=== PATIENT | female | born 1960 | race Caucasian/White ===

== ENCOUNTER → 2020-06-24 13:04 | Outpatient (BNVA) | payer MEDICAID, SELFPAY | PROVIDERS: PCP Student in an Organized Health Care Education/Training Program; Visit Provider Urology | DX: N39.41 Urge incontinence (principal); R31.29 Other microscopic hematuria | CPT/HCPCS: 51798; 88112; 99204 ==

== ENCOUNTER 2020-07-23 11:18 | Outpatient (REF) | payer MEDICAID, SELFPAY ==
--- NOTE | 2020-07-23 | US_ITS ---
EXAMINATION: US PELVIS LIMITED (BLADDER) CLINICAL INFORMATION: Urinary incontinence. COMPARISON: None TECHNIQUE: Real-time imaging of the bladder. FINDINGS: BLADDER: Well distended and normal. Bilateral ureteral jets are demonstrated. Prevoid bladder volume is 530 mL. Postvoid bladder volume is 111 mL. US/US bladder IMPRESSION: Normal bilateral ureteral jets seen. There is moderate postvoid bladder volume measuring 111 mL.
== END 2020-07-23 11:19 | disposition home or self-care (01) ==
LOC: HO.HMGCX 11:18
PROVIDERS: PCP Student in an Organized Health Care Education/Training Program; Visit Provider Student in an Organized Health Care Education/Training Program
DX: R32 Unspecified urinary incontinence (principal)
CPT/HCPCS: 76857

== ENCOUNTER → 2021-04-29 14:51 | Outpatient (BNVA) | payer SELFPAY | PROVIDERS: PCP Student in an Organized Health Care Education/Training Program | DX: R76.11 Nonspecific reaction to tuberculin skin test without active tuberculosis (principal) ==

== ENCOUNTER → 2021-05-08 14:43 | Outpatient (BNVA) | payer SELFPAY | PROVIDERS: PCP Student in an Organized Health Care Education/Training Program; Visit Provider Physician Assistant Medical | DX: Z02.1 Encounter for pre-employment examination (principal) ==

== ENCOUNTER 2024-01-17 09:22 | Outpatient (REF) | payer MEDICAID, SELFPAY ==
[2024-01-17 14:21] LABS: MANUAL DIFF FLAG NO
[2024-01-17 14:24] LABS: Basophils Percent Auto 0.8 % (0-2); Eosinophils Absolute Auto 0.2 X10*3/uL (0.0-0.4); Eosinophils Percent Auto 3.6 % (0-4); Hemoglobin 12.4 g/dl (12.0-16.0); Imm Gran Abs Auto 0.03 X10*3/uL (0.00-0.03); Imm Gran Pct Auto 0.6 % (0.0-0.4); Lymphocytes Absolute Auto 1.3 X10*3/uL (1.2-4.9); Lymphocytes Percent Auto 26.9 % (20-40); Mean Corpuscular HGB Conc 31.8 g/dl (31.0-35.0); Mean Corpuscular Hemoglobin 28.9 pg (27.0-33.0); Mean Corpuscular Volume 90.9 fL (80.0-98.0); Mean Platelet Volume 9.8 fL (9.4-12.3); Monocytes Absolute Auto 0.3 X10*3/uL (0.1-1.2); Monocytes Percent Auto 6.8 % (2-11); Neutrophils Absolute Auto 3.1 x10*3/uL (2.0-8.3); Neutrophils Percent Auto 61.3 % (45-73); Platelet Count 270 X10*3/uL (160-400); Red Blood Count 4.29 X10*6/uL (4.20-5.50); Red Cell Distribution Width 13.5 % (11.0-16.0)
[2024-01-17 14:55] LABS: Erythrocyte Sedimentation Rate 20 MM/HR (0-20)
[2024-01-17 14:57] LABS: Anion Gap 14 (12-20); Blood Urea Nitrogen 16 mg/dL (9-16); Calcium 9.5 mg/dL (8.4-10.2); Carbon Dioxide 25 mmol/L (22-29); Chloride 107 mmol/L (96-108); Estimated Glomerular Filt Rate > 60; Glucose Random 81 mg/dL (60-115); Potassium 4.1 mmol/L (3.3-5.1); Sodium 142 mmol/L (135-145)
[2024-01-17 16:17] LABS: Rheumatoid Factor < 13.0 IU/mL (<15.0)
== END 2024-01-17 09:23 | disposition home or self-care (01) ==
LOC: HO.CHCLDS 09:22
PROVIDERS: Visit Provider Pediatrics
DX: M25.511 Pain in right shoulder (principal); G89.29 Other chronic pain
CPT/HCPCS: 36415; 80048; 85025; 85652; 86431

== ENCOUNTER 2024-04-26 20:47 | Emergency (ER) | payer MEDICAID, SELFPAY ==
[2024-04-26 21:20] VITALS: BP 150/75; PULSE 82; RESP 20; TEMP 37; O2SAT 97; BMI 31.9
--- NOTE | 2024-04-26 22:40 | ED_ITS ---
HPI - General Adult General Chief complaint: Neck Pain/Injury Stated complaint: neck, jaw, back of head pain x3 days Time Seen by Provider: 04/26/24 22:37 Source: patient Mode of arrival: ambulatory Limitations: no limitations History of Present Illness ED Provider: estefany TAVAREZ narrative: Patient is a 63-year-old female with history of fibromyalgia presenting to the emergency department with complaint of gradually worsening left-sided neck pain for the past 3 days. She reports the pain is worse with movement and palpation. States it is radiating up to her occipital area and down to her shoulder. Reports pain increases when she opens her jaw. She denies any changes in vision. Denies any weakness, numbness, or tingling to extremities. Denies fever. Denies weight loss. Denies dizziness or lightheadedness. Denies increased pain with neck flexion. States that yesterday she was driving and her gradaughter attempted to jump out of the car. She reached over to grab her and this increased her pain. Denies sore throat or recent URI symptoms. MD complaint: neck pain Onset (ago): day(s) Location: neck Severity: severe Quality: aching Pain Consistency: constant Relieving factors: none Exacerbating factors: movement and other (palpation) Treatments prior to arrival: none Related Data Home Medications ?Medication ?Instructions ?Recorded ?Confirmed aspirin 81 mg tablet,delayed 81 mg PO DAILY 06/24/20 release zhnffvs-poswpkmcvsewo-dthkopmn 250 1 tab PO Q4-6H PRN 06/24/20 mg-250 mg-65 mg tablet (Excedrin Migraine) xcgbsiiaja-pcqnjhnvnabra-rrahqsyx 1 cap PO Q4-6H PRN 06/24/20 50 mg-300 mg-40 mg capsule (Fioricet) cetirizine 10 mg tablet (Zyrtec) 10 mg PO DAILY 06/24/20 cholecalciferol (vitamin D3) 25 25 mcg PO DAILY 06/24/20 mcg (1,000 unit) capsule esomeprazole magnesium 20 mg 20 mg PO DAILY 06/24/20 capsule,delayed release (Nexium) hydrochlorothiazide 25 mg tablet 25 mg PO DAILY 06/24/20 ibuprofen 600 mg tablet 600 mg PO Q6H PRN 06/24/20 miconazole nitrate 2 % topical 1 applic topical DAILY 06/24/20 cream pantoprazole 20 mg tablet,delayed 20 mg PO DAILY 06/24/20 release sucralfate 1 gram tablet (Carafate) 1 g PO BID 06/24/20 tolterodine 1 mg tablet (Detrol) 1 mg PO DAILY 06/24/20 Previous Rx's ?Medication ?Instructions ?Recorded tolterodine 4 mg capsule,extended 4 mg PO DAILY #30 caps 01/19/21 release 24 hr cyclobenzaprine 5 mg tablet 5 mg PO TID PRN muscle spasm #10 04/27/24 tabs lidocaine 5 % topical patch 1 patch topical DAILY #15 ea 04/27/24 Allergies Allergy/AdvReac Type Severity Reaction Status Date / Time tetracycline Allergy Angioedema Verified 04/26/24 21:25 morphine AdvReac Vomiting Verified 04/26/24 21:25 Review of Systems Review of Systems: As per HPI. Yes all other systems are reviewed and are negative Constitutional: Constitutional: Reports as per HPI [facility] Social History Social History Advance Directives: No Advance Directives Information Provided: No Physical Exam ED Vital Signs: Vital Signs - 24 hr 04/26/24 21:20 Temperature 98.6 F Pulse Rate 82 Respiratory Rate 20 Blood Pressure 150/75 H Pulse Oximetry 97 Oxygen Delivery Method Room Air BMI result Body Mass Index 31.9 Vital signs have been reviewed and appear to be correct. Blood pressure elevated. Heart rate normal. Respiratory rate normal. Temperature normal. Oxygen saturation normal. Const General: cooperative, healthy appearing and no acute distress Orientation/consciousness: oriented to person, oriented to place, oriented to time and patient oriented x3 Limitations: no limitations [facility] Head: Yes normocephalic and Yes atraumatic Ears: external ears normal General nose exam: Normal external nose present Face and sinus: Yes face symmetric Mouth: oropharynx normal, moist mucous membranes, no audible dysphonia, no drooling, no trismus and No restricted motion Throat: Yes posterior oropharynx normal, Yes uvula midline, No peritonsillar mass and No uvular edema Eyes Other: no ptosis , no anisocoria General: appearance normal, both eyes and all related structures Visual Bai: normal visual bai by confrontation Alignment and Position: alignment normal and position normal Periorbital: periorbital findings normal Eyelids: Yes eyelids normal Pupils: Equal, round and reactive pupils present EOM: EOMs intact bilaterally Neck Neck: Yes normal visual inspection, Yes no lymphadenopathy, Yes no meningeal signs, Yes trachea midline, Yes supple, No anterior neck swelling and Yes tender (left lateral) Carotids: no bruits Resp Effort & Inspection: normal respiratory effort and able to speak in complete sentences Auscultation: clear to auscultation bilaterally Cardio Rate: regular rate Rhythm: regular rhythm Heart sounds: S1 normal heart sound present and S2 normal heart sound present GI Palpation (GI): Soft to palpation and nontender Auscultation: normoactive bowel sounds General: Yes no CVA tenderness Back/Spine/Pelvis Back: no CVA tenderness Skin General skin exam: elasticity normal and turgor normal Neuro General: oriented to person, oriented to place, oriented to time, patient oriented x3, gait normal, tone normal, moves all extremities, Normal light touch and pain sensation, no meningeal signs, no focal motor deficits, CN's II-XI intact bilaterally and deep tendon reflexes 2+ bilaterally Cranial nerves: Yes Equal, round and reactive pupils present Cognition (Neuro): normal cognition Motor exam (neuro): 5/5 motor strength present throughout, Normal motor muscle tone present throughout and Motor abnormalities not present Extrem General: Yes full ROM, Yes no pedal edema and Yes no calf tenderness Left upper extremity: shoulder/upper arm Details: inspection abnormal and tenderness (over trapezius) Psych Mental Status: mental status grossly normal Affect: normal affect Thought process: Normal thought process present Medications Administered Discontinued Medications Generic Name Dose Route Start Last Admin Trade Name Freq PRN Reason Stop Dose Admin Cyclobenzaprine HCl 10 mg 04/26/24 23:37 04/27/24 00:00 Cyclobenzaprine Hcl 10 Mg Tablet PO 04/26/24 23:38 10 mg ONCE ONE Administration Ketorolac Tromethamine 30 mg 04/26/24 23:37 04/27/24 00:00 Ketorolac Tromethamine 30 Mg/Ml Vial IM 04/26/24 23:38 30 mg ONCE ONE Administration Lidocaine 1 patch 04/27/24 00:08 04/27/24 00:25 Lidocaine 4 % Patch Adh..Patch TRANSDERMA 04/27/24 00:09 1 patch ONCE ONE Administration Protocol Medical Decision Making Medical Decision Making MDM Narrative: Patient is a 63-year-old female with history of fibromyalgia presenting to the emergency department with complaint of gradually worsening left-sided neck pain for the past 3 days. On exam patient is awake, A+Ox3, BP mildly elevated, VS otherwise WNL, afebrile, normal neurological exam without focal deficits, physical exam findings as above. Given reported symptoms and physical exam findings, initial differential includes cervical strain, cervical radiculopathy, migraine. No red flag findings concerning for carotid artery dissection or vertebral dissection. 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 Patient medicated with flexeril, toradol and lidocaine patch in the ED with some improvement in pain. Will discharge home with flexeril and lidocaine patches, advised her to alternate Tylenol and ibuprofen as well. Warm compresses but not over the lidocaine patches. Follow up with PCP. Return precautions discussed at bedside. Patient verbalized understanding of and agreement with plan. Differential Diagnosis Differential Diagnoses: The differential diagnosis associated with the presentation includes as per [facility] External Record Review External record reviewed: Inpatient record, Office record and Outpatient record Prescription Management I considered prescription management with: Pain Medication and Other Discharge Plan Discharge Clinical Impression: Cervical muscle strain Patient Disposition: Home, Self-Care Instructions: Cervical Strain (DC) Additional Instructions: You were evaluated in the emergency department with complaint of neck pain. We recommend taking 600mg ibuprofen or 650mg Tylenol. If necessary, you can alternate these medications every three hours. For example, at noon take Tylenol, then at 3:00 take ibuprofen, then at 6:00 take Tylenol, etc. You are also being prescribed a muscle relaxer which you can use up to every 8 hours as needed. You are being prescribed topical lidocaine patches which you can wear for up to 12 hours in a 24 hour period, do not apply heat directly over the patches. You should follow up with your primary care provider as you may require physical therapy to improve your symptoms. Return to the emergency department if you develop worsening neck pain or stiffness, new weakness, numbness, or tingling to your arm, severe headaches, changes in vision or any other concerning symptoms. Prescriptions: New cyclobenzaprine 5 mg tablet 5 mg PO TID PRN (Reason: muscle spasm) Qty: 10 0RF lidocaine 5 % adhesive patch,medicated 1 patch topical DAILY Qty: 15 0RF Rx Instructions: leave on most painful area for up to 12 hrs No Action tolterodine 4 mg capsule,extended release 24hr 4 mg PO DAILY Qty: 30 5RF Print Language: Andorran
[2024-04-27] MEDS: Cyclobenzaprine HCl 10 MG TABLET PO
[2024-04-27] MEDS: Ketorolac Tromethamine 30 MG/ML VIAL IM
[2024-04-27] MEDS: Lidocaine 4 % Patch ADH..PATCH 1 PATCH TRANSDERMA (00:25)
[2024-04-27 01:00] VITALS: BP 148/72; PULSE 71; RESP 16; TEMP 36.2; O2SAT 98
[2024-04-27 01:05] VITALS: BP 0/0; PULSE 0; RESP 0; TEMP -17.7; TEMP 0; O2SAT 0
== END 2024-04-27 01:08 | disposition home or self-care (01) ==
PROVIDERS: Emergency Provider Emergency Medicine; PCP Student in an Organized Health Care Education/Training Program
DX: S16.1XXA Strain of muscle, fascia and tendon at neck level, initial encounter (principal); X50.9XXA Other and unspecified overexertion or strenuous movements or postures, initial encounter; Y93.89 Activity, other specified; Y92.810 Car as the place of occurrence of the external cause; Y99.9 Unspecified external cause status
CPT/HCPCS: 96372; 99283; 99284; J1885

== ENCOUNTER 2024-05-09 10:13 | Outpatient (REF) | payer MEDICAID, SELFPAY ==
[2024-05-09 14:39] LABS: Alanine Aminotransferase 11 U/L (0-31); Alkaline Phosphatase 80 U/L (39-117); Anion Gap 9 (12-20); Aspartate Amino Transferase 16 U/L (5-31); Bilirubin Direct 0.1 mg/dL (0.0-0.5); Bilirubin Total 0.3 mg/dL (0.0-1.0); Blood Urea Nitrogen 14 mg/dL (9-16); Calcium 9.7 mg/dL (8.4-10.2); Carbon Dioxide 28 mmol/L (22-29); Chloride 108 mmol/L (96-108); Cholesterol 174 mg/dL (<200); Estimated Glomerular Filt Rate > 60; Glucose Random 86 mg/dL (60-115); HDL Cholesterol 48 mg/dL (>40); LDL Cholesterol Calculated 98 mg/dL (<100); Potassium 4.2 mmol/L (3.3-5.1); Sodium 141 mmol/L (135-145); Total Protein 6.9 g/dL (6.5-8.0); Triglycerides 144 mg/dL (<150)
[2024-05-10 08:07] LABS: HIV AB/AG Nonreactive (Nonreactive); HIV Num 1 0.08 S/CO (0.00-0.99); ~HepC Num1 0.12 S/CO (0.00-0.79); ~Hepatitis C Antibody Nonreactive (Nonreactive)
== END 2024-05-09 10:14 | disposition home or self-care (01) ==
LOC: HO.CHCLDS 10:13
PROVIDERS: Visit Provider Student in an Organized Health Care Education/Training Program
DX: Z00.00 Encounter for general adult medical examination without abnormal findings (principal); Z11.4 Encounter for screening for human immunodeficiency virus [HIV]; I10 Essential (primary) hypertension
CPT/HCPCS: 36415; 80048; 80061; 80076; 86803; 87389

== ENCOUNTER 2025-04-16 10:09 | Outpatient (REF) | payer MEDICAID, SELFPAY ==
--- NOTE | ~2025-04-16 | XR_ITS ---
EXAMINATION: XR CHEST CLINICAL INFORMATION: Cough x 2 weeks COMPARISON: None available. TECHNIQUE: 2 views of the chest were obtained. FINDINGS: There are fine interstitial lung markings. Lungs are clear. Heart and mediastinal structures are within normal limits. There is no pleural effusion. There is mild disc space narrowing in the midthoracic spine. XR/XR chest 2V IMPRESSION: No acute disease. Electronically signed by: Flash Kulkarni MD 04/16/2025 10:33 AM EDT
--- OUTSIDE RECORDS SUMMARY | 2025-04-16 10:59 | XMS_ITS | Data Portability ---
Author Organization [facility], [address] Address [address] [place] [address] Care Team Providers Care Product Strategy Director Name Role Phone [facility] Primary Care Provider [phone] Assessment No assessment recorded. Plan of Treatment Reminders Order Date Submit Date Provider Last Modified By Organization Details Last Modified Time Details Appointments None recorded . Lab None recorded . Referral orthoped ic surgeon referral [address] [facility] (Tristen Saleh), [address] [place], [address], 3 10:16:21 Procedures None recorded . Surgeries None recorded . Imaging XR, wrist, 3 or more view 2022 023 [facility], [address] [place] [address], [address], 3 19:16:11 Medication Orders naproxen 500 mg tablet 2022 023 [address] [facility][id number], [phone] [place], [address], 3 09:49:33 Patient TargetsNo targets recorded. Patient Instructions Encounter Date Encounter Id Patient Instructions Last Modified By Organization Details Last Modified Time 10/25/2022 [id number] Apply ice to injured area for 20 minutes every couple of hours while awake. Never apply ice pack directly against the skin to avoid frostbite. You may use a towel, washcloth, elastic bandage, or layer of clothing to separate the ice pack from the skin. Elevate injured extremity as much as possible to reduce pain and prevent swelling. The injured extremity should be elevated at least above the level of the heart on several pillows. Use crutches as directed. Do not rest armpits on the top of the crutches, as this may cause nerve damage. You should put only as much weight on the injured limb as pain allows. [email or web address] Not available 10/25/2022 16:15:07 11/10/2022 [id number] wrist sprain: care instructions [email or web address] Not available 11/10/2022 13:15:25 Continue to wear the wrist splint for comort and support. Continue previously prescribed naproxen as needed for pain. See printed instructions and work duty note. A referral to orthopedics has been made for you and you will be contacted by Care Coordination with the details. Follow-up at [facility] 11/17/22 for re-evaluation unless orthopedics has assumed your care. Seek Emergency Medical evaluation for any worsening symptoms. [email or web address] Not available 11/10/2022 13:15:11 Reason for Referral Orthopedic Surgeon Referral for Pain of left wrist Left wrist pain after work injury 10/24/22 Referring Physician: Azul Miranda, Urgent Care, Encounter Date: 11/10/2022 Results Created Date Observation Date Name Description Value Unit Range Abnormal Flag Note LastModifiedBy Organization Detail LastModifiedTime 10/25/19 23 XR, wrist , 3 or more view No observ ation record ed. [email or web address] [facility] [address] [place], [address], 10/25/2022 19:16:11 10/26/19 23 imagi ng/di agnos tic resul t No observ ation record ed. [email or web address] Not Available 2022 09:28:47 Result Notes None recorded. Problems Name Problem SNOMED Code Status Onset Date Resolution Date Notes Provider Name and Address Organization Details Recorded Time Carpal tunnel syndrome 85558207 Active 023 [facility]ON Trejo - [facility] 15:57:40 Problem Notes None recorded. Procedures Surgical History Date Name Laterality Status Provider Name and Address Organization Details Recorded Time 3 WRIST SPLINT completed Denton Eng, CHOCOLATE PRODUCTION MACHINE OPERATOR [address] [place], [address], [place] - [facility] 10/25/2022 16:18:17 3 Luis Bandage completed Denton Eng, CHOCOLATE PRODUCTION MACHINE OPERATOR [address] [place], [address], [place] - [facility] 10/25/2022 16:18:58 procedure on back completed PATRICIA SWIFT PA - [facility] 10/25/2022 15:57:23 Carpal tunnel surgery completed PATRICIA SWIFT PA - [facility] 10/25/2022 15:57:51 Imaging Results None recorded. Procedure Notes None recorded. Medical Equipment None Reported. Allergies Allergen ID Allergen Name Allergen Category Reaction Reaction Severity Criticality Documentation Date Start Date Code Code System Note Provider Name and Address Organization Details Recorded Time 302378 tetracycl ine medicatio n rash Not available Not available 10/25/2022 21721 RxNorm PATRICIA chow, [place] - [facility] 3 15:56:50 266774 morphine medicatio n Not available Not available Not available 10/25/2022 7052 RxNorm PATIRCIA chow, PA - [facility] 3 15:56:56 Medications Name Sig Start Date Stop Date Status Note LastModified by Organization Details LastModified Time naproxen 500 mg tablet Take 1 tablet twice a day by oral route with meals for 10 days. 023 2022 completed Not Available Not Available Not Available Vitals Date Recorded Body height Body mass index (BMI) Body weight Pain severity - 0-10 verbal numeric rating [Score] - Reported Respiratory rate Oxygen saturation Oxygen saturation in Arterial blood by Pulse oximetry Heart rate Body temperature Systolic And Diastolic Provider Name and Address Organization Details Last Updated DateTime 3 160.02 cm 31 kg/m2 49737.6 6 g 8 18 /min 100 % 100 % 67 /min 97.1 [degF] 140/82 mm[Hg] PATRICIA CLARK RA PA - [facility] 3 15:54:39 Date Recorded Body height Oxygen saturation Oxygen saturation in Arterial blood by Pulse oximetry Pain severity - 0-10 verbal numeric rating [Score] - Reported Heart rate Respiratory rate Body temperature Body mass index (BMI) Body weight Systolic And Diastolic Provider Name and Address Organization Details Last Updated DateTime 3 160.02 cm 98 % 98 % 8 76 /min 16 /min 98.7 [degF] 31 kg/m2 24249.6 6 g 152/83 mm[Hg] Yudith Miranda [place] - [facility] 3 09:55:52 Date Recorded Body height Body mass index (BMI) Body weight Oxygen saturation Oxygen saturation in Arterial blood by Pulse oximetry Pain severity - 0-10 verbal numeric rating [Score] - Reported Heart rate Respiratory rate Body temperature Systolic And Diastolic Provider Name and Address Organization Details Last Updated DateTime 3 160.02 cm 31 kg/m2 50331.6 6 g 98 % 98 % 7 62 /min 18 /min 97.5 [degF] 138/78 mm[Hg] PATRICIA CLARK RA [place] - [facility] 3 09:52:00 Social History Question Answer Notes LastModified by [employer] Details LastModified Time Tobacco Smoking Status Never Smoker PATRICIA chow PA [facility] 10/25/2022 15:58:32 Have You Had Direct Contact, Or Contact During Intimacy, With Monkeypox Rash, Scabs, Or Body Fluids From A Person With Monkeypox? No Information not available 10/25/2022 Have You Recently Traveled Abroad? No Information not available 10/25/2022 Sex: Unknown Functional Status Question Answer Note LastModified by [employer] Details LastModified Time Do you use any illicit or recreational drugs? No Information not available 10/25/2022 Do you or have you ever used any other forms of tobacco or nicotine? No Information not available 10/25/2022 What is your level of alcohol consumption? None Information not available 10/25/2022 Mental Status None recorded. Family History Relationship Description Onset Age of this Age Resolved Age Notes LastModified by Organization Details LastModified Time Father Heart disease Not available 02/2023 15:58:10 Mother Kidney disease Not available 02/2023 15:58:17 Medical History No medical history recorded. Gynecological HistoryNo gynecological history recorded. Obstetrics History GPAL:G 0 P 0 0 0 0 Immunizations Vaccine Type Date Status Note Provider Nam e and Address Organization Details Recorded Time Influenza, split virus, quadrivalent, preservative 0 completed PATRICIA SIMMONS-WRIGHT null, PA - [facility] 10/25/2022 15:54:27 Influenza, split virus, quadrivalent, preservative 7 completed PATRICIA SIMMONS-WRIGHT null, PA - [facility] 10/25/2022 15:54:27 Influenza, split virus, quadrivalent, preservative 5 completed PATRICIA SIMMONS-WRIGHT null, PA - [facility] 10/25/2022 15:54:27 COVID-19, mRNA, LNP-S, PF, 100 mcg/0.5mL dose or 50 mcg/0.25mL dose 2 completed PATRICIA SIMMONS-WRIGHT null, PA - [facility] 10/25/2022 15:54:27 COVID-19, mRNA, LNP-S, PF, 100 mcg/0.5mL dose or 50 mcg/0.25mL dose 1 completed PATRICIA SIMMONS-WRIGHT null, PA - [facility] 10/25/2022 15:54:27 COVID-19, mRNA, LNP-S, PF, 100 mcg/0.5mL dose or 50 mcg/0.25mL dose 1 completed PATRICIA SIMMONS-WRIGHT null, PA - [facility] 10/25/2022 15:54:27 Tdap 1 completed PATRICIA SIMMONS-WRIGHT null, PA - [facility] 10/25/2022 15:54:27 Influenza, split virus, trivalent, preservative 0 completed PATRICIA SIMMONS-WRIGHT null, PA - [facility] 10/25/2022 15:54:27 Influenza, split virus, trivalent, preservative 1 completed PATRICIA SIMMONS-WRIGHT null, PA - [facility] 10/25/2022 15:54:27 Influenza, split virus, trivalent, preservative 4 completed PATRICIA SIMMONS-WRIGHT null, PA - [facility] 10/25/2022 15:54:27 influenza, split (incl. purified surface antigen) 3 completed PATRICIA SIMMONS-WRIGHT null, PA - [facility] 10/25/2022 15:54:27 Hep B, adult 1 completed PATRICIA SIMMONS-WRIGHT null, PA - [facility] 10/25/2022 15:54:27 Hep B, adult 1 completed PATRICIA SIMMONS-WRIGHT null, PA - [facility] 10/25/2022 15:54:27 Hep B, adult 1 completed PATRICIA SIMMONS-WRIGHT null, PA - [facility] 10/25/2022 15:54:27 Influenza, split virus, quadrivalent, PF 1 completed PATRICIA SIMMONS-WRIGHT null, PA - [facility] 10/25/2022 15:54:27 Past Encounters Encounter ID Performer Location Encounter Start Date Encounter Closed Date Diagnosis/Indication Diagnosis SNOMED-CT Code Diagnosis ICD10 Code Diagnosis Note [id number] Denton Eng NP [address] [place] [address] 10/25/2022 14:20:13 10/25/2022 16:31:02 Sprain of left wrist 0010633883 [id number] S63.502A [id number] KARLENE TUTTLE MD [address] [place] [address] 10/29/2022 08:52:12 10/29/2022 11:40:27 Injury of left wrist 1321688124 8416636 S69.92XD Sprain of left wrist 465 4550604 3279199 S63.502D Start the Naproxen as prescribed at the previous visit. [id number] Azul Miranda MD [address] [place], [place] [address] 11/10/2022 09:27:01 11/10/2022 13:23:43 Pain of left wrist 6668160874 71479 M25.532 Health Concerns Section Related Observation LastModified by Organization Detai ls LastModified Time None Recorded Concern Status LastModified by Organization Details LastModified Time None Recorded Advance Directives Directive None Recorded Payers Insurance Date Sequence Insurance Name Policy Number Policy Moore Covered Member ID Moore Member ID Guarantor Name 01/07/2023 [facility] [id number] [employer] Sofia Obdulio Julian OBGyn Episode No OBEpisode recorded.
--- OUTSIDE RECORDS SUMMARY | 2025-04-16 10:59 | XMS_ITS | Clinical Summary ---
Author Organization Patient Business Ser [facility] Address [address] [place] [address] Care Team Providers Care Sales Agent Insurance Name Role Phone Phoebe Weems MD Primary Care Provider [phone] Medications hydroCHLOROthia zide (HYDRODIURIL) 25 mg tablet Take 1 tablet (25 mg total) by mouth 1 (one) time each day. Active ibuprofen (ADVIL,MOTRIN) 600 mg tablet Take 1 tablet (600 mg total) by mouth 2 (two) times a day. 11/30/19 25 Active lidocaine (LIDODERM) 5 % patch Apply 1 patch topically 1 (one) time each day. 04/27/20 24 Active oxyCODONE (ROXICODONE) 5 mg immediate release tablet Take 1 tablet (5 mg total) by mouth every 4 (four) hours. Max Daily Amount: 30 mg 11/28/19 25 Active permethrin (ELIMITE) 5 % cream Apply topically 1 (one) time. 05/24/20 24 Active omeprazole (PriLOSEC) [address] capsuleIndicati ons:Gastroesoph ageal reflux disease without esophagitis TAKE 1 CAPSULE BY MOUTH EVERY DAY *DO NOT CRUSH OR CHEW* 90 capsule 03/18/20 25 Active omeprazole (PriLOSEC) [address] capsuleIndicati ons:Gastroesoph ageal reflux disease without esophagitis TAKE 1 CAPSULE BY MOUTH 1 TIME EACH DAY. DO NOT CRUSH OR CHEW. 90 capsule 12/19/19 25 025 Discontinued Active Problems Problem Noted Date Diagnosed Date Low back pain 01/02/2025 History of COVID-19 04/13/2024 Hypertension 06/28/2023 Respiratory infection 06/28/2023 Carpal tunnel syndrome 10/25/2022 Anxiety 04/25/2019 Depression 04/25/2019 DJD (degenerative joint disease) 04/25/2019 Mitral valve prolapse 04/25/2019 Pinguecula of both eyes 04/25/2019 Hiatal hernia 08/02/2018 Backache 06/19/2015 Gait instability 10/12/2012 Gastroesophageal reflux disease 10/12/2012 History of hysterectomy for benign disease 10/12 Incontinence 10/12/2012 Positive MIHAI (antinuclear antibody) 10/12/2012 Postoperative pain 10/12/2012 Vitamin D deficiency 10/12/2012 Immunizations Name Administration Dates Next Due Hepatitis B (Pyoyqzf-W-Ogwkg , Recombivax HB-Adult) 19yo and older 09/04/2021,06/11/2021,05/14/2021 Influenza Quadrivalent, 0.5m l, preservative free (Fluarix; FluLaval; Fluzone) ages 6mo and older (Afluria) 3yo and older 06/11/2021 Influenza Quadrivalent, with preservative (Fluzone; Afluria) 6mo and older 09/26/2019,06/07/2017,06/19/2015 Influenza Split 07/11/2013 Influenza trivalent, with pr eservative (Fluzone; Afluria) 6mo and older 07/23/2014,07/13/2011,06/23/2010,09/29 Pneumococcal polysaccharide 23 valent (Pneumovax 23) 2yo and older 09/29/2007 Tdap Tetanus diptheria acell ular pertussis (Boostrix; Adacel) 7yo and older 04/16/2024,07/13/2011 Surgical History Surgery Date Site/Laterality Comments BREAST REDUCTION 2015 PROCEDURE: [place] BREAST REDUCTION HYSTERECTOMY 2007 PROCEDURE: HISTORICAL HYSTERECTOMY TUBAL LIGATION PROCEDURE: HISTORICAL TUBAL LIGATION BACK SURGERY 2007 PROCEDURE: HISTORICAL BACK SURGERY; COMMENT: lumbar fusion OTHER SURGICAL HISTORY PROCEDURE: HISTORY OTHER; COMMENT: paraesophageal hernia repair w/o fundoplication OTHER SURGICAL HISTORY 12/02/2015 Left PROCEDURE: [place] LIGATION/BIOPSY TEMPORAL ARTERY; COMMENT: Neg for temporal arteritis OTHER SURGICAL HISTORY 03/16/2016 Right PROCEDURE: SKIN CYST; COMMENT: painful sebaceous cyst right neck excised Medical History Medical History Date Comments Anxiety 04/25/2019 DX:Anxiety Depression 04/25/2019 DX:Depression DJD (degenerative joint disease) 04/25/2019 DX:DJD (degenerative joint disease) Gastroesophageal reflux disease 08/02/2018 DX:Gastroesophageal reflux disease Hiatal hernia 08/02/2018 DX:Hiatal hernia History of headache 04/25/2019 DX:History o f headache; COMMENT: Left temporal artery biopsy negative for arteritis 12/02/15. Mitral valve prolapse 04/25/2019 DX:Mitral valve prolapse Pinguecula of both eyes 04/25/2019 DX:Pingu ecula of both eyes Vitamin D deficiency 04/25/2019 DX:Vitamin D deficiency Family History Medical History Relation Name Comments Liver cancer Brother at 30 Coronary artery disease Father HTN Other: kidney disease Mother a t 40 Other: liver cancer Sister at 40 Relation Name Status Comments Brother Father Mother Sister Social History Tobacco Use Types Packs/Day Years Used Date Smoking Tobacco: Never Smokeless Tobacco: Never Alcohol Use Standard Drinks/Week Comments No 0 (1 standard drink = 0.6 oz pur e alcohol) Comments No Sex and Gender Information Value Date Recorded Sex Assigned at Female 08/07/2024 9:18 AM EST Legal Sex Female 5:14 PM EST Gender Identity Female 08/07/2024 9:18 AM EST Sexual Orientation Straight 08/07/2024 9: 18 AM EST Obstetrics History Para Term AB IAB SAB Ectopic Multiple Livin g Live Births 3 Last Filed Vital Signs Vital Sign Reading Time Taken Comments Blood Pressure - - Pulse - - Temperature - - Respiratory Rate - - Oxygen Saturation - - Inhaled Oxygen Concentration - - Weight 77.1 kg (170 lb) 10/13/2024 8:17 AM EST Height 160 cm (5' 3 ) 10/13/2024 8:17 AM EST Body Mass Index 30.11 10/13/2024 8:17 AM EST Plan of Treatment Health Maintenance Due Date Last Done Comments Cervical Cancer Screening: Pap Smear 1983 Pneumococcal Vaccine: 50+ Years (2 of 2 - PCV) 2012 09/29/2007 Zoster Vaccines (1 of 2) 2012 Colorectal Cancer Screening: Colonoscopy 10/18/2023 Social Influencers of Health Screening 10/18/2023 COVID-19 Vaccine ( season) 2024 11/04/2021, 02/14/2021, 01/17/2021 Depression Screening 09/19/2024 Hypertension/CHF/CAD Annual BMP Blood Test 10/14/2024 Influenza Vaccine (#1) 2025 , 09/26/2019, 06/07/2017, Additional history exists Breast Cancer Screening 10/13/2026 10/13/2024, 07/25 Cholesterol Screening (Lipid Panel) 05/09/2029 05/09/2024 DTaP,Tdap,and Td Vaccines (3 - Td or Tdap) 04/16/2034 04/16/2024, 07/13/2011 RSV Immunization Adult Patients (1 - 1-dose 75+ series) 2037 Hepatitis B Vaccines Completed 09/04/2021, 06/11/2021, 05/14/2021 HIV Screening Completed 05/09/2024 Hepatitis C Screening Completed 05/09/2024 HIB Vaccines Aged Out No longer eligi ble based on patient's age to complete this topic HPV Vaccines Aged Out No longer eligi ble based on patient's age to complete this topic Hepatitis A Vaccines Aged Out No long er eligible based on patient's age to complete this topic IPV Vaccines Aged Out No longer eligi ble based on patient's age to complete this topic MMR Vaccines Aged Out No longer eligi ble based on patient's age to complete this topic Meningococcal ACWY Vaccine Aged Out N o longer eligible based on patient's age to complete this topic Meningococcal B Vaccine Aged Out No l onger eligible based on patient's age to complete this topic RSV Immunization Patients Under 20 months Aged Out No longer eligible based on patient's age to complete this topic Varicella Vaccines Aged Out No longer eligible based on patient's age to complete this topic Procedures Procedure Name Priority Date/Time Associated Diagnosis Comments MG MAMMO DIGITAL SCREENING W MICHAEL BILAT Routine 10/13/2024 8:43 AM EST Encounter for screening mammogram for malignant neoplasm of breast from Last 3 Months or Most Recently Relevant to Health Maintenance Results * MG Mammo Digital Screening w Michael bilat (10/13/2024 8:43 AM EST) Anatomical Region Laterality Modality Breast Bilateral Mammography 10/15/2024 8:01 AM EST Impressions 10/15/2024 8:06 AM EST No mammographic evidence of malignancy. A negative mammogram in the presence of a clinically suspicious palpable abnormality does not preclude the possibility of malignancy or alter the indications for biopsy. PQRI CPT II 3342F Code 88694, 29230 PQRI 225 CPT II 7025F TISSUE DENSITY: There are scattered areas of fibroglandular density. (BI-RADS category B) IMPRESSION: Benign. BI-RADS CATEGORY: 2 - BENIGN RECOMMENDATION: Screening bilateral mammogram is recommended in 1 year. Mammo Location: [facility], [address] [place] [address] -------- FINAL REPORT -------- Dictated By: Hema Gill Dictated Date: 10/15/2024 08:01 ET Assigned Physician: Hema Gill Reviewed and Electronically Signed By: Hema Gill Signed Date: 10/15/2024 08:06 ET Workstation ID: [id number] Transcribed By: Self Edit Transcribed Date: 10/15/2024 08:02 ET Narrative 10/15/2024 8:06 AM EST CLINICAL: The patient is a 64 years Female presenting for routine screening mammography. The patient underwent bilateral reduction mammoplasty in 2017. The patient has a family history of breast carcinoma involving her sister at age 31. COMPARISON: 07/31/2019 and 07/25/2019. TECHNIQUE: Full-field digital mammography of the breasts bilaterally consisting of tomosynthesis in MLO and CC projection is performed in the [employer] 2000-D unit. Computer aided detection utilizing the [employer] system was utilized. FINDINGS: The breasts are again seen to be composed of a combination of fatty and fibroglandular elements. The fat-containing asymmetry in the upper inner quadrant of the left breast is stable. Sequela of reduction mammoplasty are again seen. There is no suspicious cluster of microcalcifications, mass, or area of architectural distortion. There is no skin thickening or nipple retraction. Procedure Note Hema Gill MD - 10/15/2024 CLINICAL: The patient is a 64 years Female presenting for routinescreening mammography. The patient underwent bilateral reductionmammoplasty in 2017. The patient has a family history of breast carcinomainvolving her sister at age 31. COMPARISON: 07/31/2019 and 07/25/2019. TECHNIQUE: Full-field digital mammography of the breasts bilaterallyconsisting of tomosynthesis in MLO and CC projection is performed in the[employer] 2000-D unit. Computer aided detection utilizing the [employer] was utilized. FINDINGS: The breasts are again seen to be composed of a combination offatty and fibroglandular elements. The fat-containing asymmetry in theupper inner quadrant of the left breast is stable. Sequela of reductionmammoplasty are again seen. There is no suspicious cluster ofmicrocalcifications, mass, or area of architectural distortion. There isno skin thickening or nipple retraction. IMPRESSION: No mammographic evidence of malignancy. A negative mammogram in the presence of a clinically suspicious palpableabnormality does not preclude the possibility of malignancy or alter theindications for biopsy. PQRI CPT II 3342F Code 51973, 41410 PQRI 225 CPT II 7025F TISSUE DENSITY: There are scattered areas of fibroglandular density.(BI-RADS category B) IMPRESSION: Benign. BI-RADS CATEGORY: 2 - BENIGN RECOMMENDATION: Screening bilateral mammogram is recommended in 1 year. Mammo Location: [facility], [address] [place] [address] -------- FINAL REPORT -------- Dictated By: Hema Gill Dictated Date: 10/15/2024 08:01 ET Assigned Physician: Hema Gill Reviewed and Electronically Signed By: Hema Gill Signed Date: 10/15/2024 08:06 ET Workstation ID: [id number] Transcribed By: Self Edit Transcribed Date: 10/15/2024 08:02 ET us Phoebe Weems MD IMG BI PROCEDURES Final Result from Last 3 Months or Most Recently Relevant to Health Maintenance Insurance MEDICAID - [place] Care Teams Sales Agent Insurance Relationship Specialty Start Date End Date Phoebe Weems MD [address] [place] [address] PCP - General Family Medicine 08/07/24"
== END 2025-04-16 10:10 | disposition home or self-care (01) ==
LOC: HO.HHCX 10:09
PROVIDERS: PCP Student in an Organized Health Care Education/Training Program; Visit Provider Internal Medicine
DX: R05.1 Acute cough (principal)
CPT/HCPCS: 71046

== ENCOUNTER → 2025-04-16 10:17 | Outpatient (BNV) | payer MEDICAID, SELFPAY | PROVIDERS: PCP Student in an Organized Health Care Education/Training Program; Visit Provider Radiology Diagnostic Radiology | DX: R05.3 Chronic cough (principal) | CPT/HCPCS: 71046 ==

== ENCOUNTER 2025-05-21 10:48 | Outpatient (REF) | payer MEDICAID, SELFPAY ==
--- OUTSIDE RECORDS SUMMARY | 2025-04-29 11:30 | XMS_ITS | Continuity of Care Document ---
Author Organization [facility] Address [address] [place] [address] [address] [place] [address] Phone Care Team Providers Care Industry Segment Specialist Name Role Phone Brenton ROME, DARLYN, OMKAR, Aristeo Unavailable U navailable Procedures Procedure Date Office/Oupt E&M New Pt 45 Mins- CT & [place] Duplex Scan-extrem Veins; Comp- CT & [place] Advance Directives Directive Yes / No Effective Date File Name No Information Encounters Encounter Description Practice Location Reason(s) For Visit Diagnoses Date Provider Providers Copied on Encounter Office/Oupt E&M New Pt 45 Mins- [place] & [place] [facility], [address] [place] [address] Dr [address], [id number], [place] tel:[phone] CVR [facility] Localized edemaVaricose veins of bilateral lower extremities with other complicationsVe nous insufficiency (chronic) (peripheral)Faustina n in left legCramp and spasm 5 Brenton ROME, DARLYN, OMKAR [address]. [address] [facility] [address], [place], [place], [id number] , [place]. tel:[phone] Referring Provider: Phoebe Weems MD, [address], [address]. tel:[phone] [facility], [address] [place] [address] [address] [place], [id number], [place] tel:[phone] CVR - [place] Chronic venous hypertension (idiopathic) with other complications of bilateral lower extremity Brenton ROME, DARLYN, OMKAR [address]. [address] [facility], [address], [place], [id number] , . tel:[phone] Referring Provider: Aristeo Farris MD, DARLYN, OMKAR, [address] [facility] [address], [place], [address] . tel:[phone] Family History Family Member Type Diagnosis Age At Onset No Information Payers Payer name Insurance type Covered libertarian ID Authoriza tigris(s) Medical Assistance [facility] [id number] Social History Type Description Quantity Date Captured Comments Alcohol Use Details Unknown Caffeine Use Details Unknown Tobacco Use Status Current non-smoker Smoking Status Never Smoker Non-Smoking Tobacco Use Details : No Details Available : No Details Available Sex Female Vital Signs Date / Time: Height Weight BMI Pulse Rate Blood Pressure Temperature Respiratory Rate Body Surface Area Head Circumference Head Circ. Percentile Wt./Gigi. Percentile BMI percentile Pulse Ox Inhaled Ox 79.380 kg (175.00 lbs) 31.0 5 kg/m eter (2) 126/76 mm[Hg] Chief Complaint And Reason For Visit No Information Reason For Referral Reason For Referral No Information Plan Of Treatment Date Type Action Status Goal Diet education completed Referral Ordered: Weight management: Referral to physician timeframe: 3 Months (related to Body mass index (BMI) 31.0-31.9, adult) ordered Appointment Sofia Mak BOOKED Appointment Sofia Mak BOOKED Appointment Sofia Mak BOOKED Appointment Sofia Mak BOOKED Appointment Sofia Mak BOOKED Appointment Sofia Mak BOOKED Appointment Sofia Mak BOOKED Appointment Sofia Mak BOOKED Nov-13-2025 Appointment Sofia Mak BOOKED Appointment Sofia Mak BOOKED Appointment Sofia Mak BOOKED Appointment Sofia Mak BOOKED History Of Present Illness Encounter Date Complaint History Of Prese nt Illness No Information Functional Status Date Functional Assessmen t No Information Instructions Date Instruction Additional Infor mation Diet education Related to Body mass index (BMI) 31.0-31.9, adult Giving Encouragement to exercise Related to Body mass index (BMI) 31.0-31.9, adult Lifestyle education Related to B annie mass index (BMI) 31.0-31.9, adult Patient education booklet given Related to Varicose veins of bilateral lower extremities with other complications Pre and post instruc tions reviewed and provided Related to Varicose veins of bilateral lower extremities with other complications Assessments Type Assessment Date No Information Patient Care Teams Name Effective Dates (start - stop) Status Members No Information
--- OUTSIDE RECORDS SUMMARY | 2025-05-21 09:30 | XMS_ITS | Encounter Summary ---
Author Organization [employer] Address [address] [place] [id number] Care Team Providers Care Gas Well Pumper Name Role Phone Phoebe Weems MD Primary Care Provider [phone] Reason for Referral * Consultation (Urgent) - Pending Review Specialty Diagnoses / Procedures Referred By Sofia luz Referred To Contact Vascular Surgery Diagnoses PVD (peripheral vascular disease) (CMS/HCC) Phoebe Weems MD [address] [place] [address] Phone: tel: fax: Referral ID Status Reason Start Date Expiration Date Visits Requested Visits Authorized [id number] Pending Review Specialty Services Required 05/21/2025 05/21/2026 1 1 Reason for Visit * Reason Comments Annual Exam Encounter Details Date Type Department Care Team ([facility] st Contact Info) Description 05/21/2025 9:30 AM EDT Office Visit [facility] [address] [place] [address] Phoebe Weems MD [address] [place] [address] Primary hypertension (Primary Dx); Vitamin D deficiency; PVD (peripheral vascular disease) (CMS/HCC); Screening for colon cancer; Encounter for immunization; Encounter for annual wellness visit Social History Tobacco Use Types Packs/Day Years Used Date Smoking Tobacco: Never Passive Smoke Exposure: Never Smokeless Tobacco: Never Depression Answer Date Recorded Patient Health Questionnaire-9 Score 7 05/21/2025 Patient Health Questionnaire-9 Score 7 05/21/2025 Last PHQ-9: Questionnaire Data Not on file 0 05/21/2025 Housing Stability Answer Date Recorded What is your housing situation today? I have loi lazar 05/21/[address] you li ve. Do you have problems with any of the following? None of the above 05/21/2025 Food Insecurity Answer Date Recorded Within the past 12 months, y ou worried that your food would run out before you got money to buy more: Sometimes True 2024 Within the past 12 months,th e food you bought just didn't last and you didn't have enough money to get more: Sometimes True 05/21/2025 Transportation Answer Date Recorded In the past 12 months, has l ack of transportation kept you from medical appts, meetings, work or from getting things needed for daily living? No;Yes, it has kept me from non-medical meetings, work, or getting things that I need 05/21/2025 Utilities Answer Date Recorded In the past 12 months, has t he electric, gas, oil or water company threatened to shut off services in your home? Yes 05/21/2025 Depression Answer Date Recorded Patient Health Questionnaire-2 Score 2 05/21/2025 Internet Access Answer Date Recorded Internet Access Q1 No 05/21/2025 Internet Access Q2 I cannot afford it 05/21/2025 Comments No Sex and Gender Information Value Date Recorded Sex Assigned at Female 07/19/2022 10:15 AM EDT Legal Sex Female 10:15 AM EDT Gender Identity Female 07/19/2022 10:15 AM EDT Sexual Orientation Straight 07/19/2022 10 :15 AM EDT documented as of this encounter Last Filed Vital Signs Vital Sign Reading Time Taken Comments Blood Pressure 170/92 05/21/2025 9:43 AM EDT manually checked Pulse 58 05/21/2025 9:43 AM EDT Temperature 36.6 C (97.9 F) 05/21/2025 9:43 AM EDT Respiratory Rate 18 05/21/2025 9:43 AM EDT Oxygen Saturation 98% 05/21/2025 9:4 3 AM EDT Inhaled Oxygen Concentration - - Weight 82.1 kg (181 lb) 05/21/2025 9:43 AM EDT Height 160 cm (5' 3 ) 05/21/2025 9:43 AM EDT Body Mass Index 32.06 05/21/2025 9:43 AM EDT documented in this encounter Functional Status * Over the past 2 weeks, how often have you been bothered by any of the following problems? Question Answer Date of Assessment Author Patient Health Questionnaire -2 Score 2 05/21/2025 9:47 AM GEOVANNAT Audelia Brown MA * Little interest or pleasure in doing things Answer Date of Assessment Author Several days 05/21/2025 9:47 AM Ramandeep Khan MA * Feeling down, depressed, or hopeless Answer Date of Assessment Author Several days 05/21/2025 9:47 AM Ramandeep Khan MA * Trouble falling or staying asleep, or sleeping too much Answer Date of Assessment Author Several days 05/21/2025 9:47 AM Ramandeep Khan MA * Feeling tired or having little energy Answer Date of Assessment Author Several days 05/21/2025 9:47 AM Fatou Khan MA * Poor appetite or overeating Answer Date of Assessment Author Several days 05/21/2025 9:47 AM Ramandeep Khan MA * Feeling bad about yourself - or that you are a failure or have let yourself or your family down Answer Date of Assessment Author Several days 05/21/2025 9:47 AM Ramandeep Khan MA * Trouble concentrating on things, such as reading the newspaper or watching television Answer Date of Assessment Author Several days 05/21/2025 9:47 AM Ramandeep Khan MA * Moving or speaking so slowly that other people could have noticed? Or the opposite - being so fidgety or restless that you have been moving around a lot more than usual. Answer Date of Assessment Author Not at all 05/21/2025 9:47 AM Ramandeep Khan MA * Thoughts that you would be better off or hurting yourself in some way Answer Date of Assessment Author Not at all 05/21/2025 9:47 AM Ramandeep Khan MA * Patient Health Questionnaire-9 Score Answer Date of Assessment Author 7 05/21/2025 9:47 AM Ramandeep Khan MA * How difficult have these problems made it for you to do your work, take care of things at home, or get along with other people? Answer Date of Assessment Author Somewhat difficult 05/21/2025 9:47 AM Audelia Khan MA documented as of this encounter Progress Notes * Phoebe Weems MD - 05/21/2025 9:30 AM EDT Subjective Patient ID: Sofia Julian is a 64 y.o. female who presents for Annual Exam. Hypertension This is a chronic problem. The current episode started more than 1 year ago. The problem is unchanged. The problem is uncontrolled. Pertinent negatives include no chest pain, headaches, neck pain, palpitations or shortness of breath. Risk factors for coronary artery disease include family history, obesity and sedentary lifestyle. Past treatments include diuretics. The current treatment provides significant improvement. Compliance problems: inconsistent with meds. Review of Systems Constitutional: Negative. Respiratory: Negative. Negative for shortness of breath. Cardiovascular: Negative for chest pain and palpitations. Gastrointestinal: Negative. Genitourinary: Negative. Musculoskeletal: Negative for neck pain. Neurological: Negative for headaches. Objective Physical Exam Constitutional: Appearance: Normal appearance. HENT: Head: Normocephalic and atraumatic. Right Ear: Tympanic membrane normal. Left Ear: Tympanic membrane normal. Mouth/Throat: Mouth: Mucous membranes are moist. Eyes: Pupils: Pupils are equal, round, and reactive to light. Cardiovascular: Rate and Rhythm: Normal rate and regular rhythm. Pulmonary: Effort: Pulmonary effort is normal. Breath sounds: Normal breath sounds. Abdominal: General: Abdomen is flat. Palpations: Abdomen is soft. Musculoskeletal: General: Normal range of motion. Skin: General: Skin is warm. Neurological: General: No focal deficit present. Mental Status: She is alert. Psychiatric: Mood and Affect: Mood normal. Behavior: Behavior normal. Assessment/Plan Diagnoses and all orders for this visit: Primary hypertension Comments: Strongly advised compliance with meds Maintain a low-sodium diet (less than 2 grams per day). Maintain a regular cardiovascular exercise program. Advised to maintain a low-fat, low-cholesterol diet. Counseled regarding importance of weight loss. Counseled re: potential co-morbidities including cardiovascular disease. Orders: - Basic Metabolic Panel; Future - Lipid Panel, Standard; Future - Hepatic Function Panel; Future Vitamin D deficiency Comments: Cont Daily Vit D Orders: - 25 [place] Vitamin D PVD (peripheral vascular disease) (CMS/HCC) Comments: Referred to vascular surgeon Orders: - Referral to Vascular Surgery; Future Screening for colon cancer - Cologuard?? colon cancer screening Encounter for immunization - PCV-20 VACCINE 6 wks + documented in this encounter Plan of Treatment Scheduled Orders Name Type Priority Associated Diagnoses Orde r Schedule Cologuard colon cancer screening Lab Routine Screening for colon cancer Ordered: 05/21/2025 Basic Metabolic Panel Lab Routine Primary hypertension Expected: 05/21/2025 (Approximate), Expires: 05/21/2026 Lipid Panel, Standard Lab Routine Primary hypertension Expected: 05/21/2025 (Approximate), Expires: 05/21/2026 Hepatic Function Panel Lab Routine Primary hypertension Expected: 05/21/2025 (Approximate), Expires: 05/21/2026 25 [place] Vitamin D Lab Routine Vitamin D deficiency Ordered: 05/21/2025 Scheduled Referrals Name Type Priority Associated Diagnoses Orde r Schedule Referral to Vascular Surgery Outpatient Referral Urgent PVD (peripheral vascular disease) (CMS/HCC) Expected: 05/21/2025 (Approximate), Expires: 05/21/2026 documented as of this encounter Visit Diagnoses Diagnosis Primary hypertension- Primary Unspecified essential hypertension Vitamin D deficiency PVD (peripheral vascular disease) (CMS/HCC) Unspecified peripheral vascular disease Screening for colon cancer Special screening for malignant neoplasms, colon Encounter for immunization Encounter for annual wellness visit documented in this encounter Additional Health Concerns Assessment Noted Time PHQ-9 Depression Total Score: 7 05/21/20 25 9:47 AM EDT documented as of this encounter Care Teams Gas Well Pumper Relationship Specialty Start Date End Date Phoebe Weems MD [address] [place] [id number] PCP - General Family Medicine 09/25/13 documented as of this encounter
--- OUTSIDE RECORDS SUMMARY | 2025-05-21 12:16 | XMS_ITS | Encounter Summary ---
Author Organization [employer] Address [address] [facility] [address] [place] [address] Care Team Providers Care Certified Surgical Assistant Name Role Phone Phoebe Weems MD Primary Care Provider [phone] Encounter Details Date Type Department Care Team (Latest Contact Info) Description 05/21/2025 Travel Social History Tobacco Use Types Packs/Day Years [...] AM EDT documented as of this encounter Functional Status * Over the past 2 weeks, how often have you been bothered by any of the following problems? Question Answer Date of Assessment Author Patient Health Questionnaire -2 Score 2 05/21/2025 9:47 AM EDT Audelia Brown MA * Little interest or pleasure in doing things Answer Date of Assessment Author Several days 05/21/2025 9:47 AM EDT Ramandeep Brown MA * Feeling down, depressed, or hopeless Answer Date of Assessment Author Several days 05/21/2025 9:47 AM EDT Ramandeep Brown MA * Trouble falling or staying asleep, or sleeping too much Answer Date of Assessment Author Several days 05/21/2025 9:47 AM EDT Ramandeep Brown MA * Feeling tired or having little energy Answer Date of Assessment Author Several days 05/21/2025 9:47 AM EDT Ramandeep Brown MA * Poor appetite or overeating Answer Date of Assessment Author Several days 05/21/2025 9:47 AM EDT Ramandeep Brown MA * Feeling bad about yourself - or that you are a failure or have let yourself or your family down Answer Date of Assessment Author Several days 05/21/2025 9:47 AM Ramandeep Khan MA * Trouble concentrating on things, such as reading the newspaper or watching television Answer Date of Assessment Author Several days 05/21/2025 9:47 AM EDT Ramandeep Brown MA * Moving or speaking so slowly [...] Khan MA documented as of this encounter Plan of Treatment Not on file documented as of this encounter Visit Diagnoses Not on filedocumented in this encounter Additional Health Concerns Assessment Noted Time PHQ-9 Depression Total Score: 7 05/21/20 25 9:47 AM EDT documented as of this encounter Care Teams Certified Surgical Assistant Relationship Specialty Start Date End Date Phoebe Weems MD [address] [place] [id number] PCP - General Family Medicine 09/25/13 documented as of this encounter
--- OUTSIDE RECORDS SUMMARY | 2025-05-21 12:16 | XMS_ITS | Clinical Summary ---
Author Organization [email or web address] Address [address] [facility] 7t [place] [address] Care Team Providers Care Lab Assistant Name Role Phone Phoebe Weems MD Primary Care Provider [phone] Allergies Active Allergy Reactions Criticality Noted Date Comments Morphine 04/13/2024 Other Reaction(s): Not available Oxycodone 07/11/2013 Tetracycline Other,Rash Low 06/24/2023 Dysphagia ,rash Other Reaction(s): unspecified Medications esomeprazole (NexIUM) [address] capsule take 1 capsule by oral route every day at least 1 hour before a meal swallowing whole. Do not crush or chew granules. 10/02/19 22 Active cholecalcifero l (Vitamin D-3) 25 MCG (1000 UT) capsule Take 1 capsule by mouth once a day 03/01/20 22 Active Cetirizine HCl 10 MG capsule take 1 tablet by oral route every day 03/01/20 22 Active fluticasone (Flonase Allergy Relief) 50 MCG/ACT nasal spray spray 1 - 2 spray by intranasal route every day in each nostril as needed 01/14/20 22 Active Aspirin Low Dose 81 MG EC tablet TAKE 1 TABLET BY MOUTH EVERY DAY 90 tablet 3 03/09/20 23 Active sodium chloride (Busby) 0.65 % nasal spray ADMINISTER 1 SPRAY INTO EACH NOSTRIL IF NEEDED FOR CONGESTION. 44 mL 3 11/30/19 25 Active ibuprofen 600 MG tabletIndicati ons:Pain TAKE 1 TABLET BY MOUTH 2 TIMES EVERY DAY WITH FOOD NEEDED FOR PAIN AND/OR FEVER 60 tablet 5 11/30/19 25 Active hydroCHLOROthi azide (HYDRODiuril) 25 MG tablet Take 1 tablet (25 mg) by mouth Once per day. 30 tablet 11 02/08/20 25 026 Active albuterol 108 (90 Base) MCG/ACT inhalerIndicat ions:Acute cough Inhale 2 puffs every 4 (four) hours if needed for wheezing. 18 g 04/15/20 25 026 Active diphenhydrAMIN E (BENADryl) 25 MG tablet Take 1 tablet (25 mg) by mouth every 6 (six) hours if needed for itching. 30 tablet 2 05/18/20 24 025 Discontinued azithromycin (Zithromax) 250 MG tabletIndicati ons:Acute cough 500 mg on day 1, 250 mg day 2 through 5 6 tablet 02/08/20 25 025 Discontinued guaiFENesin-de xtromethorphan (Robitussin DM) 100-10 MG/5ML syrupIndicatio ns:Acute cough Take 5 mL by mouth every 4 (four) hours if needed for cough for up to 10 days. 118 mL 04/15/20 25 025 amoxicillin-cl avulanate (Augmentin) 875-125 MG tabletIndicati ons:Respirator y infection,Acut e cough Take 1 tablet by mouth 2 times daily for 10 days. 20 tablet 04/15/20 25 025 Active Problems Problem Noted Date Diagnosed Date Depressive disorder 04/13/2024 History of COVID-19 04/13/2024 Hypertension 06/28/2023 Assessment & Plan (06/28/2023 7:36 PM EDT): BP elevated today, pt reports not took BP med today -advised pt to be complaint w BP med -advised to f w PCP for BP f up and annual exam Carpal tunnel syndrome 10/25/2022 Backache 06/19/2015 Gastroesophageal reflux disease 10/12/2012 Gait instability 10/12/2012 History of hysterectomy for benign disease 10/12 Incontinence 10/12/2012 Positive MIHAI (antinuclear antibody) 10/12/2012 Postoperative pain 10/12/2012 Vitamin D deficiency 10/12/2012 Resolved Problems Problem Noted Date Diagnosed Date Resolved Date Respiratory infection 06/28/20232024 Assessment & Plan (06/28/2023 7:35 PM EDT): Possible bronchitis with worsening productive cough COVID /flu neg test here today -azithromycin oral 500 mg x 1 and then 250 mg daily for total of 5 day -mucinex,ocean nasal spray -hydration -Alarm signs nsymptoms Encounters Date Type Department Care Team Description 05/21/2025 9:30 AM EDT Office Visit [facility] [address] [place] [address] Phoebe Weems MD Primary hypertension (Primary Dx); Vitamin D deficiency; PVD (peripheral vascular disease) (CMS/HCC); Screening for colon cancer; Encounter for immunization; Encounter for annual wellness visit 05/21/2025 Telephone [facility] [address] [facility] [place] [address] Phoebe Weems MD 05/21/2025 Travel 05/17/2025 Telephone [facility] [address] [place] [address] Phoebe Weems MD CHART PREP 05/15/2025 Telephone [facility] [address] [place] [address] Phoebe Weems MD No Show 05/14/2025 Telephone [facility] [address] [place] [address] Phoebe Weems MD Chart Prep 05/13/2025 Patient Outreach [address] [address] Phoebe Weems MD Pre-visit Planning (Pre visit planning LVM ) 05/08/2025 Patient Outreach [facility] [address] [place] [address] Phoebe Weems MD Pre-visit Planning (Pre visit planning unable to LVM ) 04/29/[address] [address] Phoebe Weems MD Results 04/16/2025 Results Follow-Up [facility] [address] [place] [address] Raymundo Cobb MD XR Chest 2 Views 04/15/2025 5:20 PM EDT Office Visit [facility] [address] [place] [address] Raymundo Cobb MD Respiratory infection (Primary Dx); Acute cough; Chest tightness; Chronic pain of left knee 04/15/2025 Travel 04/10/2025 Telephone [facility] [address] [place] [address] Phoebe Weems MD cologuard kit from Last 3 Months Immunizations Immunization Administration Dates Next Due Hep B, adult 09/04/2021,06/11/2021,05/14/2021 Influenza injectable quadriv alent IIV4 with preservative 09/26/2019,06/07/2017,06/19/2015 Influenza injectable quadriv alent preservative free 06/11/2021 Influenza, IIV3, injectable 07/23/2014,1 ,06/23/2010,09/29 Influenza, Split (incl. erin fied surface antigen) 07/11/2013 Pneumococcal Conjugate PCV 20 05/21/2025 Pneumococcal Polysaccharide PPSV23 09/29/2007 Tdap 04/16/2024,07/13/2011 Social History Tobacco Use Types Packs/Day Years Used Date Smoking Tobacco: Never Passive Smoke Exposure: Never Smokeless Tobacco: Never Tobacco Cessation:Counseling Given: Not Answered Depression Answer Date Recorded Patient Health Questionnaire-9 [...] Orientation Straight 07/19/2022 10 :15 AM EDT Last Filed Vital Signs Vital Sign Reading [...] Mass Index 32.06 05/21/2025 9:43 AM EDT Plan of Treatment Health Maintenance Due Date Last Done Comments CT Colonography 1962 FIT DNA/Cologuard 1962 FIT 1962 FOBT 1962 Sigmoidoscopy 1962 Pap Smear 1983 Cervical Cancer Screening 1992 HPV/Cotest 1992 Zoster Vaccines (1 of 2) 2012 RSV Patients and Patients Aged 60 years or older (1 - Risk 60-74 years 1-dose series) 2022 Colonoscopy 01/29/2023 01/29/2013 Colorectal Cancer Screening 01/29/2023 COVID-19 Vaccine ( season) 2025 11/04/2021, 02/14/2021, 01/17/2021 Influenza Vaccine (#1) 2025 , 09/26/2019, 06/07/2017, Additional history exists Mammogram 10/13/2025 10/13/2024, 10/13/2024 Tobacco Screening 04/15/2026 04/15/2025 Alcohol/Substance Use Screening 05/21/2026 05/21/2025 Depression Screening 05/21/2026 05/21/2025, 05/21/20 Disability Screening 05/21/2026 05/21/2025 SDOH Screening 05/21/2026 05/21/2025 Lipid Panel 05/09/2029 05/09/2024 DTaP/Tdap/Td Vaccines (3 - Td or Tdap) 04/16/2034 04/16/2024, 07/13/2011 Hepatitis B Vaccines Completed 09/04/2021, 06/11/2021, 05/14/2021 HIV Screening Completed 05/09/2024 Hepatitis C Screening Completed 05/09/2024 Pneumococcal Vaccine: 50+ Years Completed 05/21/2025, 09/29/2007 HIB Vaccines Aged Out No longer eligi [...] patient's age to complete this topic Meningococcal Vaccine Aged Out No fabricio kylee eligible based on patient's age to complete this topic RSV under 20 months Aged Out No longe r eligible based on patient's age to complete this topic Rotavirus Vaccines Aged Out No longer eligible based on patient's age to complete this topic Procedures Procedure Name Priority Date/Time Associated Diagnosis Comments XR CHEST 2 VIEWS Routine 04/16/2025 9:39 AM EDT Acute cough POCT RAPID COVID ANTIGEN Routine 04/15/2025 5:44 PM EDT Acute cough HEPATITIS C AB W/REFL TO HCV RNA, QN, PCR Routine 05/09/2024 10:18 AM EDT PE (physical exam), annual HIV 1/2 ANTIGEN/ANTIBODY, FOURTH GENERATION W/RFL Routine 05/09/2024 10:18 AM EDT PE (physical exam), annual LIPID PANEL, STANDARD Routine 05/09/2024 10:18 AM EDT Primary hypertension HM COLONOSCOPY Routine 01/29/2013 from Last 3 Months or Most Recently Relevant to Health Maintenance Results * XR Chest 2 Views (04/16/2025 9:39 AM EDT) Anatomical Region Laterality Modality Chest Radiographic Clotilde ging 04/16/2025 9:39 AM EDT Narrative 04/16/2025 10:36 [place] [address] XRay Report Signed Patient: Sofia Juarez MR#: [id number] : 1960 Acct:[id number] Age/Sex: 64 / F ADM Date: 04/16/25 Loc: HO.HHCX Attending Dr: Raymundo Cobb MD Ordering Physician: Raymundo Cobb MD Date of Service: 04/16/25 Procedure(s): XR chest 2V Accession Number(s): [id number] cc: Raymundo Cobb MD; Phoebe Weems MD EXAMINATION: XR CHEST CLINICAL INFORMATION: Cough x 2 weeks COMPARISON: None available. TECHNIQUE: 2 views of the chest were obtained. FINDINGS: There are fine interstitial lung markings. Lungs are clear. Heart and mediastinal structures are within normal limits. There is no pleural effusion. There is mild disc space narrowing in the midthoracic spine. XR/XR chest 2V IMPRESSION: No acute disease. Electronically signed by: Flash Kulkarni MD 04/16/2025 10:33 AM EDT RP Dictated By: Flash Kulkarni MD Signed By: <Electronically signed by Flash Kulkarni MD in OV> 04/16/25 1033 DD/ TD/TT: 04/16/25 1028 Scrum Coach: Procedure Note Donotuseinterpreter, Image - 04/16/[address] [address] XRay Report Signed Patient: Flora JuarezR#: [id number] : 1960cct:[id number] Age/Sex: 64 / FADM Date: 04/16/25 Loc: HO.HHCX Attending Dr: Raymundo Cobb MD Ordering Physician: Raymundo Cobb MD Date of Service: 04/16/25 Procedure(s): XR chest 2V Accession Number(s): [id number] cc: Raymundo Cobb MD; Phoebe Weems MD EXAMINATION: XR CHEST CLINICAL INFORMATION: Cough x 2 weeks COMPARISON: None available. TECHNIQUE: 2 views of the chest were obtained. FINDINGS: There are fine interstitial lung markings. Lungs are clear. Heart and mediastinal structures are within normal limits. There is no pleural effusion. There is mild disc space narrowing in the midthoracic spine. XR/XR chest 2V IMPRESSION: No acute disease. Electronically signed by: Flash Kulkarni MD 04/16/2025 10:33 AM EDT RP Dictated By: Flash Kulkarni MD Signed By: <Electronically signed by Flash Kulkarni MD in OV> 04/16/25 1033 DD/ 0939 TD/TT: 04/16/25 1028 Scrum Coach: us Raymundo Cobb MD IMG XR PROCEDURES Final Res ult * POCT Rapid COVID Ag (04/15/2025 5:44 PM EDT) [facility] Rapid COVID Ag Negative QC Media Lot # [id number] Lot# Expiration Date [id number] Swab 04/15/2025 5:44 PM EDT Raymundo Cobb MD POINT OF CARE TEST ENTER/ED IT ORDERABLES Final Result * Hepatitis C Antibody with Reflex to HCV, RNA, Quantitative, Real-Time PCR (05/09/2024 10:18 AM EDT) [facility] Hepatitis C Antibody Nonreactive Nonreactive [facility] Comment:Antibodies to HCV no t detected; does not exclude early acuteHCV infection. Blood Venous blood specimen / Unknown 05/09/2024 10:18 AM EDT 05/09/2024 2:09 PM EDT Phoebe Weems MD LAB BLOOD ORDERABLES Final Resul t [facility] [address] [place] [phone] * HIV-1/2 Antigen and Antibodies, Fourth Generation, with Reflexes (05/09/2024 10:18 AM EDT) [facility] HIV AB/AG Nonreactive Nonreactive [facility] Comment:HIV-1 p24 Ag and/or HIV-1/HIV-2 Ab not detected.A test result that is nonreactive does not exclude thepossibility of exposure to or infection with HIV-1 and/orHIV-2. Nonreactive results in this assay for individualswith prior exposure to HIV-1 and/or HIV-2 may be due toantigen and antibody levels that are below the limit ofdetection of this assay.The [employer] HIV Ag/Ab Combo assay result andsupplemental assay results should be interpreted inconjunction with the patient's clinical presentation,history and other laboratory results. If the results areinconsistent with clinical evidence, additional testing issuggested to confirm the result. Blood Venous blood specimen / Unknown 05/09/2024 10:18 AM EDT 05/09/2024 2:09 PM EDT Phoebe Weems MD LAB BLOOD ORDERABLES Final Resul t Performing Organization Address [facility] Co de Phone Number [facility] [address] [place] [phone] * Lipid Panel, Standard (05/09/2024 10:18 AM EDT) Triglycerides 144 <150 mg/dL [facility] Comment:Desirable Triglyceri de: less than 150 mg/dLBorderline High Triglyceride 150-199 mg/dLHigh Triglyceride: 200-499 mg/dLVery High Triglyceride: greater than or equal to 5OO mg/dL Cholesterol 174 <200 mg/dL [facility] Comment:Desirable Cholestero l: less than 200 mg/dLBorderline High Cholesterol: 200-239 mg/dLHigh Cholesterol: greater than 239 mg/dL LDL Cholesterol Calculated 98 <100 mg/dL [facility] Comment:Desirable LDL: less than 100 mg/dLNear Optimal/Above Optimal LDL: 110- 129 mg/dLBorderline High LDL: 130-159 mg/dLHigh LDL: 160-189 mg/dLVery High LDL: greater than or equal to 190 mg/dL HDL Cholesterol 48 >40 mg/dL [facility] Comment:Desirable HDL: great er than 40 mg/dL Note: This HDL assay may give artificially low results in patients with liver disease. Blood Venous blood specimen / Unknown 05/09/2024 10:18 AM EDT 05/09/2024 2:09 PM EDT Phoebe Weems MD LAB BLOOD ORDERABLES Final Resul t Performing Organization Address [facility]/ZIP Co de Phone Number [facility] [address] [place] [phone] * Hm Colonoscopy (01/29/2013) Colonoscopy Normal Normal Historical Provider HEALTH MAINTENANCE Final Result from Last 3 Months or Most Recently Relevant to Health Maintenance [place] [address] [place] [address] C3 Care Teams Lab Assistant Relationship Specialty Start Date End Date Phoebe Weems MD [address] [place] [phone] PCP - General Family Medicine 09/25/13
--- OUTSIDE RECORDS SUMMARY | 2025-05-21 12:16 | XMS_ITS | Encounter Summary ---
Author Organization [employer] Address [address] [facility] 7t [place] [address] Care Team Providers Care Cotton Program Technician Name Role Phone Phoebe Weems MD Primary Care Provider [phone] Encounter Details Date Type Department Care Team (Late st Contact Info) Description 04/30/2024 Orders Only [facility] [address] [place] [address] Provider, MD Dayami Social History Tobacco Use Types Packs/Day Years Used Date Smoking Tobacco: Never Passive Smoke Exposure: Never Smokeless Tobacco: Never Depression Answer Date Recorded Patient Health Questionnaire-9 Score 20 04/16/2024 Patient Health Questionnaire-9 Score 20 04/16/2024 Last PHQ-9: Questionnaire Data Not on file 0 04/16/2024 Housing Stability Answer Date Recorded What is your housing situation today? I have loi lazar 04/06/[address] you li ve. Do you have problems with any of the following? Pests such as bugs, ants, or mice 04/06/2024 Food Insecurity Answer Date Recorded Within the past 12 months, y ou worried that your food would run out before you got money to buy more: Sometimes True 2023 Within the past 12 months,th e food you bought just didn't last and you didn't have enough money to get more: Sometimes True 04/06/2024 Transportation Answer Date Recorded In the past 12 months, has l ack of transportation kept you from medical appts, meetings, work or from getting things needed for daily living? No 08/17/2023 Utilities Answer Date Recorded In the past 12 months, has t he electric, gas, oil or water company threatened to shut off services in your home? No 08/17/2023 Depression Answer Date Recorded Patient Health Questionnaire-2 Score 6 04/16/2024 Comments No Sex and Gender Information Value Date Recorded Sex Assigned at Female 07/19/2022 10:15 AM EDT Legal Sex Female 10:15 AM EDT Gender Identity Female 07/19/2022 10:15 AM EDT Sexual Orientation Straight 07/19/2022 10 :15 AM EDT documented as of this encounter Plan of Treatment Not on file documented as of this encounter Procedures Procedure Name Priority Date/Time Associated Diagnosis Comments XR CERVICAL SPINE 4V Routine 04/27/2024 9:36 AM EDT documented in this encounter Results * XR CERVICAL SPINE 4V (04/27/2024 9:36 AM EDT) Anatomical Region Laterality Modality Abdomen Radiographic Clotilde ging us Historical Provider MD BROWN XR PROCEDURES Final R esult documented in this encounter Visit Diagnoses Not on filedocumented in this encounter Additional Health Concerns Assessment Noted Time PHQ-9 Depression Total Score: 20 024 9:51 AM EDT documented as of this encounter Care Teams Cotton Program Technician Relationship Specialty Start Date End Date Phoebe Weems MD [address] [place] [phone] PCP - General Family Medicine 09/25/13 documented as of this encounter
--- OUTSIDE RECORDS SUMMARY | 2025-05-21 12:16 | XMS_ITS | Encounter Summary ---
Author Organization [employer] Address [address] [place] [address] 7 [place] [address] Care Team Providers Care Accounting Clerk Name Role Phone Phoebe Weems MD Primary Care Provider [phone] Reason for Visit * Reason Onset Date Comments CHART PREP 05/17/2025 Encounter Details Date Type Department Care Team ([facility] Contact Info) Description 05/17/2025 Telephone [facility] [address] [place] [address] Phoebe Weems MD [address] [place] [address] CHART PREP Social History Tobacco Use Types Packs/Day Years [...] Recorded Patient Health Questionnaire-2 Score 6 04/16/2024 Internet Access Answer Date Recorded Internet Access Q1 Yes 05/18/2024 Internet Access Q2 Not on file 05/18/2024 Comments No Sex and Gender Information Value Date Recorded Sex Assigned at Female 07/19/2022 10:15 AM EDT Legal Sex Female 10:15 AM EDT Gender Identity Female 07/19/2022 10:15 AM EDT Sexual Orientation Straight 07/19/2022 10 :15 AM EDT documented as of this encounter Miscellaneous Notes * Telephone Encounter - Nitza Hamilton MA - 05/17/2025 10:34 AM EDT Chart Prep Labs: done Images: done Referrals: appointment pending Vaccines due: PCV20 Screenings: colonoscopy and pap smear Overdue care gaps: SBIRT, SDOH, PHQ-9, and Disability screen documented in this encounter Plan of Treatment Not on file documented as of this encounter Visit Diagnoses Not on filedocumented in this encounter Additional Health Concerns Assessment Noted Time PHQ-9 Depression Total Score: 20 024 9:51 AM EDT documented as of this encounter Care Teams Accounting Clerk Relationship Specialty Start Date End Date Phoebe Weems MD [address] [place] [phone] PCP - General Family Medicine 09/25/13 documented as of this encounter
--- OUTSIDE RECORDS SUMMARY | 2025-05-21 12:16 | XMS_ITS | Encounter Summary ---
Author Organization [employer] Address [address] [place] [address] 7 [place] [address] Care Team Providers Care Mechanical Spreader Operator Name Role Phone Phoebe Weems MD Primary Care Provider [phone] Encounter Details Date Type Department Care Team ([facility] st Contact Info) Description 04/16/2025 Results Follow-Up [facility] [address] [place] [address] Raymundo Cobb MD [address] [place] [address] XR Chest 2 Views Social History Tobacco Use Types Packs/Day Years [...] documented as of this encounter Care Teams Mechanical Spreader Operator Relationship Specialty Start Date End Date Phoebe Weems MD [address] [place] [phone] PCP - General Family Medicine 09/25/13 documented as of this encounter
--- OUTSIDE RECORDS SUMMARY | 2025-05-21 12:16 | XMS_ITS | Encounter Summary ---
Author Organization [employer] Address [address] [facility] 7t [place] [address] Care Team Providers Care Registered Nurse Nursery Name Role Phone Phoebe Weems MD Primary Care Provider [phone] Encounter Details Date Type Department Care Team ([facility] st Contact Info) Description 05/21/2025 Telephone [facility] [address] [place], [place] [phone] Phoebe Weems MD [address] [place], [place] [phone] Social History Tobacco Use Types Packs/Day Years Used Date Smoking Tobacco: Never Passive Smoke Exposure: Never Smokeless Tobacco: Never Depression Answer Date Recorded Patient Health Questionnaire-9 Score 7 05/21/2025 Patient Health Questionnaire-9 Score 7 05/21/2025 Last PHQ-9: Questionnaire Data Not on file 0 05/21/2025 Housing Stability Answer Date Recorded What is your housing situation today? I have loiюлия lazar 05/21/[address] you [...] Assessment Author Several days 05/21/2025 9:47 AM GEOVANNAT Ramandeep Brown MA * Moving or speaking so slowly that other people could have noticed? Or the opposite - being so fidgety or restless that you have been moving around a lot more than usual. Answer Date of Assessment Author Not at all 05/21/2025 9:47 AM EDT Ramandeep Brown MA * Thoughts that you would be better off or hurting yourself in some way Answer Date of Assessment Author Not at all 05/21/2025 9:47 AM EDT Ramandeep Brown MA * Patient Health Questionnaire-9 Score Answer Date of Assessment Author 7 05/21/2025 9:47 AM GEOVANNAT Ramandeep Brown MA * How difficult have these problems made it for you to do your work, take care of things at home, or get along with other people? Answer Date of Assessment Author Somewhat difficult 05/21/2025 9:47 AM EDT Audelia Brown MA documented as of this encounter Miscellaneous Notes * Telephone Encounter - Audelia Brown MA - 05/21/2025 10:12 AM EDT Positive SDOH, please assist patient. documented in this encounter Plan of Treatment Not on file documented as of this encounter Visit Diagnoses Not on filedocumented in this encounter Additional Health Concerns Assessment Noted Time PHQ-9 Depression Total Score: 7 05/21/20 25 9:47 AM EDT documented as of this encounter Care Teams Registered Nurse Nursery Relationship Specialty Start Date End Date Phoebe Weems MD [address] [place] [address] PCP - General Family Medicine 09/25/13 documented as of this encounter
--- OUTSIDE RECORDS SUMMARY | 2025-05-21 12:17 | XMS_ITS | Clinical Summary ---
Author Organization Patient Business Ser [facility] Address [address] [place] [address] Care Team Providers Care Dual Rate Supervisor Name Role Phone Phoebe Weems MD Primary Care Provider [phone] Medications hydroCHLOROthiaz donta (HYDRODIURIL) 25 mg tablet Take 1 tablet (25 mg total) by mouth 1 (one) time each day. Active ibuprofen (ADVIL,MOTRIN) 600 mg tablet Take 1 tablet (600 mg total) by mouth 2 (two) times a day. 5 Active lidocaine (LIDODERM) 5 % patch Apply 1 patch topically 1 (one) time each day. 4 Active oxyCODONE (ROXICODONE) 5 mg immediate release tablet Take 1 tablet (5 mg total) by mouth every 4 (four) hours. Max Daily Amount: 30 mg 5 Active permethrin (ELIMITE) 5 % cream Apply topically 1 (one) time. 4 Active omeprazole (PriLOSEC) [address] capsuleIndicatialida ns:Gastroesophag eal reflux disease without esophagitis TAKE 1 CAPSULE BY MOUTH EVERY DAY *DO NOT CRUSH OR CHEW* 90 capsule 5 Active Active Problems Problem Noted Date Diagnosed Date [...] Name Administration Dates Next Due Hepatitis B (Yhnyydd-T-Qgbho , Recombivax HB-Adult) 19yo and older 09/04/2021,06/11/2021,05/14/2021 [...] Date Site/Laterality Comments BREAST REDUCTION 2015 PROCEDURE: ID BREAST REDUCTION HYSTERECTOMY 2007 PROCEDURE: HISTORICAL HYSTERECTOMY TUBAL LIGATION PROCEDURE: HISTORICAL TUBAL LIGATION BACK SURGERY 2007 PROCEDURE: HISTORICAL BACK SURGERY; COMMENT: lumbar fusion OTHER SURGICAL HISTORY PROCEDURE: HISTORY OTHER; COMMENT: paraesophageal hernia repair w/o fundoplication OTHER SURGICAL HISTORY 12/02/2015 Left PROCEDURE: ID LIGATION/BIOPSY TEMPORAL ARTERY; COMMENT: Neg for temporal [...] 10/13/2024 8:17 AM EST Plan of Treatment Upcoming Encounters Date Type Department Care Team (Late st Contact Info) Description 07/30/2025 8:20 AM EST Office Visit Gastroenterology - [place] [address] [place] [address] Chandrika Hartman NP [address] [place] [phone] Health Maintenance Due Date Last Done Comments Cervical Cancer Screening: Pap Smear 1983 Pneumococcal Vaccine: 50+ Years (2 of 2 - PCV) 2012 09/29/2007 Zoster Vaccines (1 of 2) 2012 Colorectal Cancer Screening: Colonoscopy 10/18/2023 Social Influencers of Health Screening 10/18/2023 Depression Screening 09/19/2024 Hypertension/CHF/CAD Annual BMP Blood Test 10/14/2024 COVID-19 Vaccine ( season) 2025 11/04/2021, 02/14/2021, [...] for biopsy. PQRI CPT II 3342F Code 35587, 01862 PQRI 225 CPT II 7025F TISSUE DENSITY: There are scattered areas of fibroglandular density. (BI-RADS category B) IMPRESSION: Benign. BI-RADS CATEGORY: 2 - BENIGN RECOMMENDATION: Screening bilateral mammogram is recommended in 1 year. Mammo Location: [facility], [address] [place] [address] -------- FINAL REPORT -------- Dictated By: Hema Gill Dictated Date: 10/15/2024 08:01 ET Assigned Physician: Hema Gill Reviewed and Electronically Signed By: Hema Gill Signed Date: 10/15/2024 08:06 ET Workstation ID: [id number] Transcribed By: Self Edit Transcribed Date: 10/15/2024 [...] and CC projection is performed in the [employer] 2000-D unit. Computer aided detection utilizing the iSpot.tv system was utilized. FINDINGS: The breasts are [...] MLO and CC projection is performed in theKiwupographe 2000-D unit. Computer aided detection utilizing the Sound Pharmaceuticalsystem was utilized. FINDINGS: The breasts are again [...] for biopsy. PQRI CPT II 3342F Code 31198, 66209 PQRI 225 CPT II 7025F TISSUE DENSITY: There are scattered areas of fibroglandular density.(BI-RADS category B) IMPRESSION: Benign. BI-RADS CATEGORY: 2 - BENIGN RECOMMENDATION: Screening bilateral mammogram is recommended in 1 year. Mammo Location: [facility], [address] [place] [address] -------- FINAL REPORT -------- Dictated By: Hema Gill Dictated Date: 10/15/2024 08:01 ET Assigned Physician: Hema Gill Reviewed and Electronically Signed By: Hema Gill Signed Date: 10/15/2024 08:06 ET Workstation ID: [id number] Transcribed By: Self Edit Transcribed Date: 10/15/2024 08:02 ET Phoebe Weems MD IMG BI PROCEDURES Final Result from Last 3 Months or Most Recently Relevant to Health Maintenance Insurance MEDICAID - [place] Care Teams Dual Rate Supervisor Relationship Specialty Start Date End Date Phoebe Weems MD [address] [place] [address] PCP - General Family Medicine 08/07/24
[2025-05-21 14:54] LABS: Alanine Aminotransferase 17 U/L (0-31); Albumin Level 4.5 g/dL (3.5-5.0); Alkaline Phosphatase 88 U/L (39-117); Anion Gap 10 (12-20); Aspartate Amino Transferase 21 U/L (5-31); Blood Urea Nitrogen 11 mg/dL (9-16); Calcium 9.3 mg/dL (8.4-10.2); Carbon Dioxide 29 mmol/L (22-29); Chloride 108 mmol/L (96-108); Cholesterol 180 mg/dL (<200); Estimated Glomerular Filt Rate > 60; HDL Cholesterol 52 mg/dL (>40); Potassium 4.0 mmol/L (3.3-5.1); Sodium 143 mmol/L (135-145); Total Protein 7.2 g/dL (6.5-8.0); Triglycerides 85 mg/dL (<150)
== END 2025-05-21 10:49 | disposition home or self-care (01) ==
LOC: HO.CHCLDS 10:48
PROVIDERS: Visit Provider Student in an Organized Health Care Education/Training Program
DX: I10 Essential (primary) hypertension (principal)
CPT/HCPCS: 36415; 80048; 80061; 80076

== ENCOUNTER 2025-06-19 15:42 | Outpatient (REF) | payer MEDICAID, SELFPAY ==
--- NOTE | 2025-06-19 | PFT_ITS ---
Indication dyspnea Spirometry FEV1 to FVC 91%; FEV1 2.15 L; FVC 2.36 L. No significant response to bronchodilators noted. Lung Volumes Total lung capacity 78% predicted; expiratory reserve volume 89% predicted Diffusion Capacity DLCO 88% predicted Comparison None Interpretation No obstructive ventilatory defects. No significant response to bronchodilators noted. The patient does have a restrictive ventilatory defect consistent with mild restrictive lung disease. In part this could be secondary to an elevated BMI although can not rule out parenchymal lung disease and/or neuromuscular disease. Diffusing capacity is within normal limits. Clinical correlation warranted. MTDD
--- OUTSIDE RECORDS SUMMARY | 2025-06-19 16:25 | XMS_ITS | Clinical Summary ---
Author Organization Patient Business Ser [facility] Address [address] [place] [address] Care Team Providers Care Hospitalist Program Director Name Role Phone Phoebe Weems MD Primary Care Provider [phone] Medications hydroCHLOROthia zide (HYDRODIURIL) 25 mg tablet [...] MOUTH EVERY DAY *DO NOT CRUSH OR CHEW 90 capsule 06/17/20 25 Active omeprazole (PriLOSEC) [address] capsuleIndicati ons:Gastroesoph ageal reflux disease without esophagitis TAKE 1 CAPSULE BY MOUTH EVERY DAY *DO NOT CRUSH OR CHEW* 90 capsule 03/18/20 25 025 Discontinued Active Problems Problem Noted [...] pain 10/12/2012 Vitamin D deficiency 10/12/2012 Immunizations Immunization Administration Dates Next Due Hepatitis B (Mrtgsqw-I-Osidy , Recombivax HB-Adult) 19yo and older 09/04/2021,06/11/2021,05/14/2021 [...] History Surgery Date Site/Laterality Comments BREAST REDUCTION 2016 PROCEDURE: [place] BREAST REDUCTION HYSTERECTOMY 2007 PROCEDURE: [...] 8:20 AM EST Office Visit Gastroenterology - [place] [address] [facility] [address] [place] [address] Chandrika Hartman, MAHAD [address] [facility] [address] [place] [address] Health Maintenance Due Date Last Done Comments Colorectal Cancer Screening: Colonoscopy 1962 Cervical Cancer Screening: Pap Smear 1983 Pneumococcal Vaccine: 50+ Years (2 of 2 - PCV) 2012 09/29/2007 Zoster Vaccines (1 of 2) 2012 Social Influencers of Health Screening 10/18/2023 Depression [...] for biopsy. PQRI CPT II 3342F Code 96038, 68335 PQRI 225 CPT II 7025F TISSUE DENSITY: There are scattered areas of fibroglandular density. (BI-RADS category B) IMPRESSION: Benign. BI-RADS CATEGORY: 2 - BENIGN RECOMMENDATION: Screening bilateral mammogram is recommended in 1 year. Mammo Location: [facility], [address] [place] [address] -------- FINAL REPORT -------- Dictated By: Hema Gill Dictated Date: 10/15/2024 08:01 ET Assigned Physician: Hema Gill Reviewed and Electronically Signed By: Hema Gill Signed Date: 10/15/2024 08:06 ET Workstation ID: [id number] Transcribed By: Self Edit Transcribed Date: 10/15/2024 [...] and CC projection is performed in the [employer] 2000-D unit. Computer aided detection utilizing the iCAD system was utilized. FINDINGS: The breasts are [...] MLO and CC projection is performed in theHighRoadsographe 2000-D unit. Computer aided detection utilizing the iCADsystem was utilized. FINDINGS: The breasts are again [...] for biopsy. PQRI CPT II 3342F Code 28141, 75321 PQRI 225 CPT II 7025F TISSUE DENSITY: There are scattered areas of fibroglandular density.(BI-RADS category B) IMPRESSION: Benign. BI-RADS CATEGORY: 2 - BENIGN RECOMMENDATION: Screening bilateral mammogram is recommended in 1 year. Mammo Location: [facility], [address] [place] [address] -------- FINAL REPORT -------- Dictated By: Hema Gill Dictated Date: 10/15/2024 08:01 ET Assigned Physician: Hema Gill Reviewed and Electronically Signed By: Hema Gill Signed Date: 10/15/2024 08:06 ET Workstation ID: [id number] Transcribed By: Self Edit Transcribed Date: 10/15/2024 08:02 ET Phoebe Weems MD IMG BI PROCEDURES Final Result from Last 3 Months or Most Recently Relevant to Health Maintenance Insurance MEDICAID - [place] Care Teams Hospitalist Program Director Relationship Specialty Start Date End Date Phoebe Weems MD [address] [place] [address] PCP - General Family Medicine 08/07/24
--- OUTSIDE RECORDS SUMMARY | 2025-06-19 16:25 | XMS_ITS | Encounter Summary ---
Author Organization [employer] Address [address] [place] [address] 7 [place] [address] Care Team Providers Care Sack Maker Name Role Phone Phoebe Weems MD Primary Care Provider [phone] Mari Gaitan Unavailable Encounter Details Date Type Department Care Team ([facility] st Contact Info) Description 04/16/2025 Results Follow-Up [facility] [address] [place], [place] [phone] Raymundo Cobb MD [address] [place] [address] XR Chest 2 Views Social History Tobacco [...] before you got money to buy more: Often true 05/22/2025 Within the past 12 months,th e food you bought just didn't last and you didn't have enough money to get more: Often true 11/2024 Transportation Answer Date Recorded In the past 12 months, has l ack of transportation kept you from medical appts, meetings, work or from getting things needed for daily living? Yes, it has kept me from medical appointments or getting medications. 05/22/2025 Utilities Answer Date Recorded In the past 12 months, has t he electric, gas, oil or water company threatened to shut off services in your home? No 05/22/2025 Depression Answer Date Recorded Patient Health Questionnaire-2 Score 2 05/21/2025 Internet Access Answer Date Recorded Internet Access Q1 Yes 05/22/2025 Internet Access Q2 I cannot afford it 05/22/2025 Comments No Sex and Gender Information Value [...] 9:47 AM GEOVANNAT Ramandeep Brown [place] * Trouble falling or [...] 9:47 AM GEOVANNAT Ramandeep Brown [place] * Trouble concentrating on things, such [...] Assessment Author Somewhat difficult 05/21/2025 9:47 AM GEOVANNAT Audelia Brown [place] documented as of this encounter Plan of Treatment Not on file documented as of this encounter Visit Diagnoses Not on filedocumented in this encounter Additional Health Concerns Assessment Noted Time PHQ-9 Depression Total Score: 20 024 9:51 AM EDT documented as of this encounter Care Teams Sack Maker Relationship Specialty Start Date End Date Phoebe Weems MD [address] [place] [address] PCP - General Family Medicine 09/25/13 Mari Gaitan 05/22/25 documented as of this encounter
--- OUTSIDE RECORDS SUMMARY | 2025-06-19 16:25 | XMS_ITS | Encounter Summary ---
Author Organization [employer] Address [address] [facility] 7t [place] [address] Care Team Providers Care Scorer Single Name Role Phone Phoebe Weems MD Primary Care Provider [phone] Mari Gaitan Unavailable Encounter Details Date Type Department Care Team ([facility] st Contact Info) Description 04/30/[address] [facility] [address] [place] [address] Provider, MD Dayami Social History Tobacco Use Types Packs/Day Years Used Date Smoking Tobacco: Never Passive Smoke Exposure: Never Smokeless Tobacco: Never Depression Answer Date Recorded Patient Health Questionnaire-9 Score 20 04/16/2024 Patient Health Questionnaire-9 Score 20 04/16/2024 Last PHQ-9: Questionnaire Data Not on file 0 04/16/2024 Housing Stability Answer Date Recorded What is your housing situation today? I have loiюлия lazar 04/06/[address] you [...] documented as of this encounter Care Teams Scorer Single Relationship Specialty Start Date End Date Phoebe Weems MD [address] [place] [phone] PCP - General Family Medicine 09/25/13 Mari Gaitan 05/22/25 documented as of this encounter
--- OUTSIDE RECORDS SUMMARY | 2025-06-19 16:25 | XMS_ITS ---
Author Organization [employer] Address [address] [place] [address] Care Team Providers Care House Mover Name Role Phone Phoebe Weems MD Primary Care Provider [phone] Mari Gaitan [facility] Complex Status:Enrolled (Active) Start date:05/22/2025 Enrollment date:05/27/2025 Enrollment reason:CP - Provider Referred Overview SDOH Case Team Name Relationship Phone Mari Gaitan(Responsible Staff) [phone] Continued Care and Services Coordination
--- OUTSIDE RECORDS SUMMARY | 2025-06-19 16:25 | XMS_ITS | Clinical Summary ---
Author Organization [employer] Address [address] [place] [address] 7 [place] [address] Care Team Providers Care Cloth Weigher Name Role Phone Phoebe Weems MD Primary Care Provider [phone] Mari Gaitan Unavailable Allergies Active Allergy Reactions Criticality Noted Date [...] tablet 3 03/09/20 23 Active sodium chloride ([place]) 0.65 % nasal spray ADMINISTER 1 SPRAY [...] 5 6 tablet 02/08/20 25 025 Discontinued Active Problems Problem Noted [...] Encounters Date Type Department Care Team Description 06/11/2025 Patient Outreach [address] [address] Phoebe Weems MD Care Coordination (SDOH f/u) 06/05/2025 Patient Outreach [address] [address] Phoebe Weems MD Care Coordination (SDOH f/u) 05/27/2025 Patient Outreach [address] [address] Phoebe Weems MD Care Coordination (SDOH) 05/22/2025 Patient Outreach [address] [address] Phoebe Weems MD Care Coordination (CHW chart review) 05/22/2025 Patient Outreach [address] [address] Phoebe Weems MD Care Coordination (SDOH) 05/21/2025 9:30 AM EDT Office Visit [facility] [address] [place] [address] Phoebe Weems MD Primary hypertension (Primary Dx); Vitamin D deficiency; PVD (peripheral vascular disease) (CMS/HCC); Screening for colon cancer; Encounter for immunization; Encounter for annual wellness visit 05/21/2025 Telephone [facility] [address] [place] [address] Phoebe Weems MD 05/21/2025 Travel 05/17/2025 Telephone [facility] [address] [place] [address] Phoebe Weems MD CHART PREP 05/15/2025 Telephone [facility] [address] [place] [address] Phoebe Weems MD No Show 05/14/2025 Telephone [facility] [address] [place] [address] Phoebe Weems MD Chart Prep 05/13/2025 Patient Outreach [address] [address] Phoebe Weems MD Pre-visit Planning (Pre visit planning LVM ) 05/08/2025 Patient Outreach [address] [address] Phoebe Weems MD Pre-visit Planning (Pre visit planning unable to LVM ) 04/29/2025 Telephone [facility] [address] [place] [address] Phoebe Weems MD Results 04/16/2025 Results Follow-Up [facility] [address] [place] [address] Raymundo Cobb MD XR Chest 2 Views 04/15/2025 5:20 PM EDT Office Visit [facility] [address] [place] [address] Raymundo Cobb MD Respiratory infection (Primary Dx); Acute cough; Chest tightness; Chronic pain of left knee 04/15/2025 Travel 04/10/2025 Telephone [facility] [address] [place] [address] Phoebe Weems MD cologuard kit from Last [...] 05/21/20 Disability Screening 05/21/2026 05/21/2025 SDOH Screening 05/22/2026 05/22/2025 Lipid Panel 05/21/2030 05/21/2025, 05/09/2024 DTaP/Tdap/Td Vaccines (3 - Td or [...] Procedure Name Priority Date/Time Associated Diagnosis Comments HEPATIC FUNCTION PANEL Routine 05/21/2025 10:50 AM EDT Primary hypertension LIPID PANEL, STANDARD Routine 05/21/2025 10:50 AM EDT Primary hypertension BASIC METABOLIC PANEL Routine 05/21/2025 10:50 AM EDT Primary hypertension XR CHEST 2 VIEWS Routine 04/16/2025 9:39 AM EDT Acute cough POCT RAPID COVID ANTIGEN Routine 04/15/2025 5:44 PM EDT Acute cough HEPATITIS C AB W/REFL TO HCV RNA, QN, PCR Routine 05/09/2024 10:18 AM EDT PE (physical exam), annual HIV 1/2 ANTIGEN/ANTIBODY, FOURTH GENERATION W/RFL Routine 05/09/2024 10:18 AM EDT PE (physical exam), annual HM COLONOSCOPY Routine 01/29/2013 from Last 3 Months or Most Recently Relevant to Health Maintenance Results * Hepatic Function Panel (05/21/2025 10:50 AM EDT) Bilirubin, Total 0.5 0.0 - 1.0 mg/dL [facility] Bilirubin, Direct 0.2 0.0 - 0.5 mg/dL [facility] Aspartate Amino Transferase 21 5 - 31 U/L [facility] Alanine Aminotransferase 17 0 - 31 U/L [facility] Total Protein 7.2 6.5 - 8.0 g/dL [facility] Albumin Level 4.5 3.5 - 5.0 g/dL [facility] Alkaline Phosphatase 88 39 - 117 U/L [facility] Blood Venous blood specimen / Unknown 05/21/2025 10:50 AM EDT 05/21/2025 2:27 PM EDT Phoebe Weems MD LAB BLOOD ORDERABLES Final Resul t Performing Organization Address [facility] de Phone Number [facility] [address] [place] [phone] * (ABNORMAL) Lipid Panel, Standard (05/21/2025 10:50 AM EDT) Triglycerides 85 <150 mg/dL [facility] Comment:Desirable Triglyceri de: less than 150 mg/dLBorderline High Triglyceride 150-199 mg/dLHigh Triglyceride: 200-499 mg/dLVery High Triglyceride: greater than or equal to 5OO mg/dL Cholesterol 180 <200 mg/dL [facility] Comment:Desirable Cholestero l: less than 200 mg/dLBorderline High Cholesterol: 200-239 mg/dLHigh Cholesterol: greater than 239 mg/dL LDL Cholesterol Calculated 111(H) <100 mg/dL [facility] Comment:Desirable LDL: less than 100 mg/dLNear Optimal/Above Optimal LDL: 110- 129 mg/dLBorderline High LDL: 130-159 mg/dLHigh LDL: 160-189 mg/dLVery High LDL: greater than or equal to 190 mg/dL HDL Cholesterol 52 >40 mg/dL [facility] Comment:Desirable HDL: great er than 40 mg/dL Note: This HDL assay may give artificially low results in patients with liver disease. Blood Venous blood specimen / Unknown 05/21/2025 10:50 AM EDT 05/21/2025 2:27 PM EDT us Phoebe Weems MD LAB BLOOD ORDERABLES Final Resul t Performing Organization Address [facility] Co de Phone Number [facility] [address] [place] [phone] * (ABNORMAL) Basic Metabolic Panel (05/21/2025 10:50 AM EDT) Sodium 143 135 - 145 mmol/L [facility] Potassium 4.0 3.3 - 5.1 mmol/L [facility] Chloride 108 96 - 108 mmol/L [facility] Carbon Dioxide 29 22 - 29 mmol/L [facility] Anion Gap 10(L) 12 - 20 [facility] Urea Nitrogen (BUN) 11 9 - 16 mg/dL [facility] Creatinine, Serum 0.75 0.5 - 1.4 mg/dL [facility] Estimated Glomerular Filt Rate >60 [facility] Comment:Chronic Kidney Disea se: Estimated GFR < 60 mL/min/[id number] Kidney Disease: Estimated GFR < 15 mL/min/1.73m2 Glucose 99 60 - 115 mg/dL [facility] Calcium 9.3 8.4 - 10.2 mg/dL [facility] Blood Venous blood specimen / Unknown 05/21/2025 10:50 AM EDT 05/21/2025 2:27 PM EDT us Phoebe Weems MD LAB BLOOD ORDERABLES Final Resul t Performing Organization Address City/State/[facility] Co de Phone Number [facility] [address] [place] [phone] * XR Chest 2 Views (04/16/2025 9:39 AM EDT) Anatomical Region Laterality Modality Chest Radiographic Clotilde ging 04/16/2025 9:39 AM EDT Narrative 04/16/2025 10:36 AM EDT [address] [address] XRay Report Signed Patient: Sofia Juarez MR#: [id number] : 1960 Acct:[id number] Age/Sex: 64 / F ADM Date: 04/16/25 Loc: HO.HHCX Attending Dr: Raymundo Cobb MD Ordering Physician: Raymundo Cobb MD Date of Service: 04/16/25 Procedure(s): XR chest 2V Accession Number(s): [id number] cc: Raymundo Cobb MD; Phoebe Weems MD [...] IMPRESSION: No acute disease. Electronically signed by: Flsah Kulkarni MD 04/16/2025 10:33 AM EDT RP Dictated By: Flash Kulkarni MD Signed By: <Electronically signed by Flash Kulkarni MD in OV> 04/16/25 1033 DD/ 0939 TD/TT: 04/16/25 1028 Machine Set Up Technician: Procedure Note Donotuseinterpreter, Image - 04/16/[address] [address] XRay Report Signed Patient: Flora JuarezR#: [id number] : 1960cct:[id number] Age/Sex: 64 / FADM Date: 04/16/25 Loc: HO.HHCX Attending Dr: Raymundo Cobb MD Ordering Physician: Raymundo Cobb MD Date of Service: 04/16/25 Procedure(s): XR chest 2V Accession Number(s): [id number] cc: Raymundo Cobb MD; Phoebe Weems MD [...] 04/16/25 1033 DD/ 0939 TD/TT: 04/16/25 1028 Machine Set Up Technician: Raymundo Cobb MD IMG XR PROCEDURES Final Res ult * POCT Rapid COVID Ag (04/15/2025 5:44 PM EDT) [facility] Rapid COVID Ag Negative QC Media Lot # [id number] Lot# Expiration Date [id number] Swab 04/15/2025 5:44 PM EDT us Raymundo Cobb MD POINT OF CARE TEST ENTER/ED IT ORDERABLES Final Result * Hepatitis C Antibody with Reflex to HCV, RNA, Quantitative, Real-Time PCR (05/09/2024 10:18 AM EDT) [facility] Hepatitis C Antibody Nonreactive Nonreactive [facility] Comment:Antibodies to HCV no t detected; does not exclude early acuteHCV infection. Blood Venous blood specimen / Unknown 05/09/2024 10:18 AM EDT 05/09/2024 2:09 PM EDT us Phoebe Weems MD LAB BLOOD ORDERABLES Final Resul t [facility] [address] [place] [phone] * HIV-1/2 Antigen and Antibodies, Fourth Generation, with Reflexes (05/09/2024 10:18 AM EDT) [facility] HIV AB/AG Nonreactive Nonreactive [facility] Comment:HIV-1 p24 Ag and/or HIV-1/HIV-2 Ab not detected.A test result that is nonreactive does not exclude thepossibility of exposure to or infection with HIV-1 and/orHIV-2. Nonreactive results in this assay for individualswith prior exposure to HIV-1 and/or HIV-2 may be due toantigen and antibody levels that are below the limit ofdetection of this assay.The [employer] Instruments[employer]ity HIV Ag/Ab Combo assay result andsupplemental assay results should be interpreted inconjunction with the patient's clinical presentation,history and other laboratory results. If the results areinconsistent with clinical evidence, additional testing issuggested to confirm the result. Blood Venous blood specimen / Unknown 05/09/2024 10:18 AM EDT 05/09/2024 2:09 PM EDT Phoebe Weems MD LAB BLOOD ORDERABLES Final Resul t [facility] [address] [place] [phone] * Colonoscopy (01/29/2013) [facility] Colonoscopy Normal Normal us Historical Provider HEALTH MAINTENANCE Final Result from Last 3 Months or Most Recently Relevant to Health Maintenance Insurance C3 Care Teams Cloth Weigher Relationship Specialty Start Date End Date Phoebe Weems MD [address] [place] [phone] PCP - General Family Medicine 09/25/13 Mari Gaitan 05/22/25
[2025-06-19 16:29] VITALS: PULSE 64; O2SAT 98
== END 2025-06-19 15:43 | disposition home or self-care (01) ==
LOC: HO.RESP 15:42
PROVIDERS: PCP Student in an Organized Health Care Education/Training Program; Visit Provider Internal Medicine
DX: R05.1 Acute cough (principal); R07.89 Other chest pain
CPT/HCPCS: 94010; 94640; 94727; 94729

== ENCOUNTER → 2025-06-19 15:56 | Outpatient (BNV) | payer MEDICAID, SELFPAY | PROVIDERS: PCP Student in an Organized Health Care Education/Training Program; Visit Provider Hospitalist | DX: J98.4 Other disorders of lung (principal) | CPT/HCPCS: 94060; 94727; 94729 ==